=== PATIENT | female | born 1930 | race Caucasian/White ===

== ENCOUNTER 2019-08-15 13:41 | Inpatient (IN) ==
[2019-08-15 14:29] LABS: Basophils # (auto) 0.01 K/uL (0-0.2); Basophils % (auto) 0.2 %; Eosinophils # (auto) 0.03 K/uL (0-0.5); Eosinophils % (auto) 0.5 %; Hematocrit (blood only) 36.1 % (37-47); Immature Granulocytes # (auto) 0.01 K/uL (0.00-0.02); Immature Granulocytes % (auto) 0.2 %; Lymphocytes # (auto) 2.18 K/uL (1.2-3.4); Lymphocytes % (auto) 34.1 %; Mean Corpuscular Hemoglobin 33.8 pg (25-34); Mean Corpuscular Hgb Conc 33.2 g/dL (32-36); Mean Corpuscular Volume 101.7 fL (80-100); Mean Platelet Volume 8.9 fL (7.4-10.4); Monocytes # (auto) 0.34 K/uL (0.11-0.59); Monocytes % (auto) 5.3 %; Neutrophils # (auto) 3.82 K/uL (1.4-6.5); Neutrophils % (auto) 59.7 %; Platelet Count 192 K/uL (130-400); RDW Coefficient of Variation 14.5 % (11.5-14.5); RDW Standard Deviation 53.6 fL (36.4-46.3); Red Blood Count 3.55 M/uL (4.2-5.4); White Blood Count 6.39 K/uL (4.8-10.8)
[2019-08-15 14:46] LABS: Partial Thromboplastin Ratio 0.8; Partial Thromboplastin Time 21.7 Seconds (21.0-31.0); Prothrombin Time 10.7 Seconds (9.0-12.0)
[2019-08-15 14:47] LABS: Albumin Level 3.2 gm/dl (3.4-5.0); BUN Creatinine Ratio 17.9 (10-20); Calcium 9.3 mg/dl (8.5-10.1); Creatinine Clr Calc Pharmacy 20.5 ml/min; Est GFR (African American) 23.3; Est GFR (Non-African American) 20.1; Potassium 3.7 mmol/L (3.5-5.1)
[2019-08-15 15:03] LABS: Albumin Globulin Ratio 0.6 (0.9-2); Bilirubin,Total 0.5 mg/dl (0.2-1); Globulin 5.2 gm/dl (2.5-4.0); Total Protein 8.4 gm/dl (6.4-8.2); Troponin I 0.236 ng/ml (0-0.045)
--- NOTE | 2019-08-15 15:24 | XRay Report ---
XR chest 1V portable CLINICAL HISTORY: 88 years-old Female presenting with Dyspnea. TECHNIQUE: Portable upright AP view of the chest was obtained. COMPARISON: 10/12/2013. FINDINGS: Atherosclerosis of the aortic arch. Cardiac silhouette enlarged. Pulmonary vascular prominence. Inter stitial prominence. Bibasilar opacities and pleural effusions. Limited aeration of the lung bases. No pneumothorax. Osteopenia suspected. Upper abdomen normal. IMPRESSION: 1. Cardiomegaly with volume overload and congestive change. 2. Suspected bibasilar edema. Aspiration or extensive atelectasis may also appear similarly. 3. Bilateral pleural effusions. ACT 112: Negative or not required by law. Electronically signed by: Jalen Pacheco M.D. 08/15/2019 3:23 PM
[2019-08-15] MEDS ORDERED: FUROSEMIDE 40 MG/4 ML VIAL IV STA (15:29)
[2019-08-15] MEDS ORDERED: ASPIRIN CHEW 324 MG PO STA (15:29)
[2019-08-15] MEDS ORDERED: ASPIRIN 81 MG CHEW PO STA (15:36)
[2019-08-15 15:52] LABS: Appearance Urine Clear (Clear); Bacteria Urine Automated Negative (Negative); Bilirubin Urine Negative (Negative); Blood Urine Negative (Negative); Color Urine Yellow; Epithelial Cell Urine Auto >30 /lpf (0-5); Glucose Urine UA Negative (Negative); Ketones Urine Negative (Negative); Leukocyte Esterase Urine Trace (Negative); Nitrite Urine Negative (Negative); Protein Urine Negative (Negative); RBC Urine Automated 0-4 /hpf (0-4); Specific Gravity Urine 1.016 (1.000-1.030); Urobilinogen Urine Negative (Negative)
[2019-08-15 16:16] LABS: Thyroid Stimulating Hormone 3.73 uIu/ml (0.300-4.500)
--- NOTE | 2019-08-15 16:26 | History & Physical Report ---
Date of Service August 15, 2019 Assessment & Plan (1) Dyspnea on exertion: (2) CHF (congestive heart failure): (3) Elevated troponin: This is an 88-year-old female with significant past medical history of HTN, HLD, hypothyroidism, CKD stage IV with baseline creatinine 1.8-2.0, multiple myeloma in surveillance since 2012, osteoporosis who presents to [facility] ED secondary to dyspnea on exertion and weakness x4 days. In ED patient remained hemodynamically stable, saturating well on room air. CBC revealed WBC 6.39, H&H 12.0 and 36.1, platelet 192. CMP revealed sodium 134, K3.7, BUN 39, creatinine 2.16, glucose 131, troponin elevated 0.236, proBNP elevated 24,598 TSH 3.73 CXR: IMPRESSION:1. Cardiomegaly with volume overload and congestive change. B/L pleural effusions. She received ASA 325 mg x 1 along with furosemide 40 mg IV x1. Repeat ECG reveals normal sinus rhythm, no ischemic ST changes. Patient is chest pain-free Pt appears dry on exam, w/o edema, no significant weight gain ? if CHF/congestive change in setting of cardiac dysfunction vs cardiorenal Elevated troponin may be secondary to demand ischemia vs CKD. Patient does complain of productive purulent cough, but is afebrile without other respiratory complaint -procalcitonin pending, infectious etiology not ruled out Admit to PCU Administer Lasix 40 mg IV x1 now obtain echocardiogram - last done 2018 wnl Monitor response Strict I's and O's, daily weights Place Croft catheter, patient tends to be incontinent Cycle troponin every 6 hours x2 starting at 6 PM Cardiology consulted Low threshold for nephrology consult Sputum culture Incentive spirometry (4) CKD (chronic kidney disease), stage IV: Baseline creatinine 1.8-2.0 Creatinine 2.44 on 08/12/2019 BUN/creatinine 39 and 2.16 today Monitor renal function closely in setting of diuresis Low threshold to consult [facility] nephrology (5) Hypertension: On atenolol and Lasix as outpatient Hold oral Lasix BP 134/72 upon my evaluation Monitor (6) Hypothyroid: Continue levothyroxine (7) DVT prophylaxis: SQ Heparin SCD/TEDS Disposition: Admit to PCU Follow-up: PCP Dr. Bo upon discharge, along with appropriate cardiology and nephrology follow-up Patient was seen and examined in collaboration with Dr. Ngo, please see addendum History of Present Illness Chief Complaint: ALVAREZ and weakness x4 days. Primary Care Provider: Oswaldo Bo DO This is an 88-year-old female with significant past medical history of HTN, HLD, hypothyroidism, CKD stage IV with baseline creatinine 1.8-2.0, multiple myeloma in surveillance since 2012, osteoporosis who presents to [facility] ED secondary to dyspnea on exertion and weakness x4 days. Nephew and niece are at bedside. Patient elicits for the past 4 days she is overall felt unwell. Complains of shortness of breath with minimal exertion, productive purulent cough, decreased appetite and overall weakness. She lives alone but is monitored frequently by her nephew. She ambulates with a walker at baseline. She feels ambulating has been much more difficult over the past few days due to her weakness and being significantly short of breath. She denies any fever, chills, sweats, lightheadedness, dizziness, syncope, fall, chest pain, palpitations, hemoptysis, orthopnea, PND, nausea, vomiting, abdominal pain, dysuria, increased urgency or frequency with urination, melena, hematochezia. She is mostly constipated and last bowel movement was 2 days ago which is normal for her. Her appetite has been overall decreased and overall intake has been poor over the past few days. Niece at bedside felt maybe she was dehydrated. No other recent illness or sick contacts. She does not monitor her weights on a regular basis; however, he is feels she only fluctuates about 1 to 2 pounds and has otherwise been stable. No significant lower extremity edema and she does take Lasix 40 mg twice daily. She is been compliant with her medications. She denies any significant increase in salt intake. In ED patient remained hemodynamically stable, saturating well on room air. CBC revealed WBC 6.39, H&H 12.0 and 36.1, platelet 192. CMP revealed sodium 134, K3.7, BUN 39, creatinine 2.16, glucose 131, troponin elevated 0.236, proBNP elevated 24,598 TSH 3.73 CXR: IMPRESSION:1. Cardiomegaly with volume overload and congestive change. B/L pleural effusions. She received ASA 325 mg x 1 along with furosemide 40 mg IV x1. Allergies Allergy/AdvReac Type Severity Reaction Status Date / Time No Known Allergies Allergy Unverified 08/15/19 14:09 Home Medications Home Medications Medication Instructions Recorded Confirmed Type amitriptyline 50 mg PO HS 10/30/18 08/15/19 History aspirin 81 mg PO QAM 10/30/18 08/15/19 History atenolol 25 mg PO HS 10/30/18 08/15/19 History atorvastatin 10 mg PO HS 10/30/18 08/15/19 History furosemide 40 mg PO BIDM 10/30/18 08/15/19 History levothyroxine 75 mcg PO DAILYBB 08/15/19 08/15/19 History multivitamin 1 tab PO QAM 08/15/19 08/15/19 History Past Med/Surg History Medical History (Updated 08/15/19 @ 19:08 by Samm Taylor MD) CKD (chronic kidney disease), stage IV Hypertension (Chronic) Hypothyroid (Chronic) Multiple myeloma In surveillance since 2012, follows Dr. Aceves Osteoporosis Surgical History (Updated 08/15/19 @ 16:36 by Kimmy Browne PA-C) History of enucleation of left eyeball Family History (Updated 08/15/19 @ 16:36 by Kimmy Browne PA-C) Father Diabetes Social History Preferred Language: Malian Communication Ability: Effective Beliefs That Will Affect Care: None Current Living Situation: Alone current occupational status: retired Other Information That Helps Us Care for You: Yes ([employer]) Feels Safe at Home: Yes Safety Concerns: Feels Safe At This Time Smoking Status: Never smoker Hx Alcohol Use: No Hx Substance Use: No Review of Systems Review of Systems: All systems reviewed & are unremarkable except as noted in HPI & below Physical Exam Physical Exam: Constitutional: WD/WN, elderly, female vitals as above, NAD, sitting up in bed, pleasant, conversing easily Head: Normocephalic, Atraumatic Eyes: PERRL on right, left eye prosthetic, conjunctivae normal, anicteric scl erae ENMT: external ear and nose normal, oropharynx with dry mucous membranes Neck: trachea midline, no thyromegaly normal visual inspection Respiratory: normal respiratory effort, lungs clear to auscultation with decreased absent breath sounds bibasilar, no wheeze, rales, rhonchi. Normal insp/exp effort, no accessory muscle use Cardiovascular: RRR, no murmur, no edema Vessels: no JVD or carotid bruit Chest: normal inspection of chest Abdomen: normal bowel sounds, soft, nontender, no hepatosplenomegaly Musculoskeletal: no cyanosis or clubbing, extremities motor strength 5/5 Skin: no rashes, warm and dry normal turgor Neurologic: PERRL, EOMI, accommodation nl, no face palsy, no dysarthria CN's II-XI intact bilaterally and moves all extremities Psychiatric: A+Ox3, euthymic affect Lymphatic: no cervical or axillary lymphadenopathy : deferred Results & Data Vital Signs (Past 12 Hours) Vital Signs Temp Pulse Pulse Resp BP BP Pulse Ox 08/15/19 15:57 81 24 137/74 95 08/15/19 15:28 79 26 H 174/146 H 94 08/15/19 14:08 98 08/15/19 13:44 36.3 C L 77 20 141/83 H 98 Laboratory Results Short CBC 08/15/19 08/15/19 08/15/19 Range/Units 14:20 14:20 14:20 WBC 6.39 (4.8-10.8) K/uL Hgb 12.0 (12.0-16.0) g/dL Hct 36.1 L (37-47) % Plt Count 192 (130-400) K/uL Sodium 134 L (136-145) mmol/L Creatinine 2.16 H (0.6-1.2) mg/dl Troponin I 0.236 H* (0-0.045) ng/ml NT-Pro-B Natriuret Pep 11667 H (0-1800) pg/ml TSH 3.730 (0.300-4.500) uIu/ml BMP 08/15/19 14:20 Sodium 134 L Potassium 3.7 Chloride 102 Carbon Dioxide 28 BUN 39 H Creatinine 2.16 H Glucose 131 H Calcium 9.3 Cardiac Enzymes 08/15/19 Range/Units 14:20 Troponin I 0.236 H* (0-0.045) ng/ml Liver Function 08/15/19 Range/Units 14:20 Total Bilirubin 0.5 (0.2-1) mg/dl AST 29 (15-37) U/L ALT 25 (12-78) U/L Alkaline Phosphatase 64 (45-117) U/L Albumin 3.2 L (3.4-5.0) gm/dl Urine 08/15/19 Range/Units 15:20 Urine Color Yellow Urine Appearance Clear (Clear) Urine pH 5.0 (4.5-7.5) Ur Specific [place] 1.016 (1.000-1.030) Urine Protein Negative (Negative) Urine Glucose (UA) Negative (Negative) Diagnostic Findings CXR: IMPRESSION: 1. Cardiomegaly with volume overload and congestive change. 2. Suspected bibasilar edema. Aspiration or extensive atelectasis may also appear similarly. 3. Bilateral pleural effusions. Medications Administered Discontinued Medications Aspirin (Aspirin Chew) 243 mg PO NOW STA Stop: 08/15/19 15:37 Last Admin: 08/15/19 16:27 Dose: 243 mg Documented by: [id number] Code Status & VTE Plan Code Status Full code VTE Prophylaxis Plan VTE Prophylaxis will be ordered: Yes Supervising Physician Co-Signing Physician Notes Patient seen and examined by me, care coordinated with Kimmy Browne PA-C. Please refer to her note for further details and chronic conditions. Patient is 88-year-old female, with history of CKD stage IV, hypertension, hyperlipidemia, hypothyroidism, history of MM and surveillance since 2012. She presents with shortness of breath for the past 4 days, occasional cough with white sputum production. Chest x-ray concerning for congestion with bilateral pleural effusions. Troponin elevated at 0.236, and on repeat 4 hours later, 0.264. EKG showed normal sinus rhythm, left axis deviation, possible anterior infarct, age undetermined. patient denies any chest pain or palpitations, currently sitting up in bed speaking in full sentences, on room air. No history of fevers, chills or sick contacts. Says she does not go outside that much. Patient received 40 mg IV Lasix in the ED around 5 PM. Currently her lung sounds are somewhat diminished, with some bibasilar crackles. Heart regular, no murmurs noted. Abdomen soft, nontender nondistended, obese. No significant lower extremity edema noted. Creatinine mildly elevated from baseline, currently 2.16, baseline about 1.8-2.0. possible concern for CHF, echo ordered, repeat troponin ordered and night provider notified to follow-up. We will continue to monitor her resp onse to IV Lasix, will obtain standing scale this evening and in the morning, Croft catheter was placed and will monitor I's and O's closely. If no improvement in creatinine and fluid balance, will likely consult nephrology tomorrow. (1) CHF (congestive heart failure) Heart failure chronicity: unspecified Heart failure type: unspecified Qualified Code(s): I50.9 - Heart failure, unspecified
[2019-08-15] MEDS ORDERED: ONDANSETRON INJ 2 MG/ML 2 ML VIAL IV PRN (17:33)
[2019-08-15] MEDS ORDERED: POLYETHYLENE (MIRALAX) 17 GM PACK PO PRN (17:33)
[2019-08-15] MEDS ORDERED: ACETAMINOPHEN 325 MG TAB PO PRN (17:33)
--- NOTE | 2019-08-15 19:08 | Emergency Department Note ---
Entered by Kate Tejeda acting as a scribe for History of Present Illness General Chief complaint: Respiratory Problems Stated complaint: DRAINAGE, HARD TIME BREATHING Time Seen by Provider: 08/15/19 13:53 History of Present Illness Provider complaint: shortness of breath Onset (ago): day(s) 5 Pain Consistency: + other (episode) Quality: + other (shortness of breath) Associated symptoms: + denies other symptoms (leg swelling, history of blood clots or heart failure, sick contact, abdominal pain, falls), + cough (productive with colored phlegm), + loss of appetite (mild) and + other (saw PCP yesterday 3 days ago and got a chest x-ray that showed fluid in lungs, ); no fever/chills Treatments prior to arrival: none The patient is an 88 year old while female w/ PMHx of hypertension and hypothyroidism who presents to the ED w/ CC of an episode of shortness of breath beginning 5 days ago. The patient states that her shortness of breath is exacerbated by movement and lying flat. The patient states that she was seen by her PCP 3 days ago and got a chest x-ray that showed fluid present in her lungs. The patient notes that she also has a productive cough with colored phlegm as well as a mild loss of appetite. The patient denies leg swelling, history of blood clots or heart failure, sick contact, fever, chills, abdominal pain and falls. The patient notes that she has not taking any treatments prior to arrival to help the shortness of breath. Home Medications Home Medications Medication Instructions Recorded Confirmed Type amitriptyline 50 mg PO HS 10/30/18 08/15/19 History aspirin 81 mg PO QAM 10/30/18 08/15/19 History atenolol 25 mg PO HS 10/30/18 08/15/19 History atorvastatin 10 mg PO HS 10/30/18 08/15/19 History furosemide 40 mg PO BIDM 10/30/18 08/15/19 History levothyroxine 75 mcg PO DAILYBB 08/15/19 08/15/19 History multivitamin 1 tab PO QAM 08/15/19 08/15/19 History Allergies Allergy/AdvReac Type Severity Reaction Status Date / Time No Known Allergies Allergy Unverified 08/15/19 14:09 Past Med/Surg History Medical History (Updated 08/15/19 @ 19:08 by Samm Taylor MD) CKD (chronic kidney disease), stage IV Hypertension (Chronic) Hypothyroid (Chronic) Multiple myeloma In surveillance since 2012, follows Dr. Aceves Osteoporosis Surgical History (Updated 08/15/19 @ 16:36 by Kimmy Browne PA-C) History of enucleation of left eyeball Family History (Updated 08/15/19 @ 16:36 by Kimmy Browne PA-C) Father Diabetes Social History Preferred Language: Hebrew Communication Ability: Effective Beliefs That Will Affect Care: None Current Living Situation: Alone current occupational status: retired Other Information That Helps Us Care for You: Yes ([employer]) Feels Safe at Home: Yes Safety Concerns: Feels Safe At This Time Smoking Status: Never smoker Hx Alcohol Use: No Hx Substance Use: No Review of Systems See HPI for pertinent positives & negatives. and A total of 10 systems reviewed and were otherwise negative Physical Exam Vital Signs Vital Signs - 24 hr 08/15/19 13:44 08/15/19 14:08 08/15/19 15:28 Temperature 36.3 C L Temperature Source Oral Pulse Rate 77 Pulse Rate [Right Finger] 79 Pulse Rhythm Regular Pulse Strength Normal Respiratory Rate 20 26 H Respiratory Effort / Characteristics Non-Labored Spontaneous Respiratory Depth Normal Respiratory Pattern Regular Blood Pressure 141/83 H Blood Pressure [Right Arm] 174/146 H Blood Pressure Mean 102 Blood Pressure Mean [Right Arm] 155 Blood Pressure Position Sitting Blood Pressure Position [Right Arm] Pulse Oximetry 98 98 94 Oxygen Delivery Method Room Air Room Air Room Air Sepsis Recent Fever Within 48 Hours No Sepsis New/Unexplained Change in Mental Status No Sepsis Action Taken by Nursing No Action Required 08/15/19 15:57 Temperature Temperature Source Pulse Rate Pulse Rate [Right Finger] 81 Pulse Rhythm Pulse Strength Respiratory Rate 24 Respiratory Effort / Characteristics Respiratory Depth Respiratory Pattern Blood Pressure Blood Pressure [Right Arm] 137/74 Blood Pressure Mean Blood Pressure Mean [Right Arm] 95 Blood Pressure Position Blood Pressure Position [Right Arm] Sitting Pulse Oximetry 95 Oxygen Delivery Method Room Air Sepsis Recent Fever Within 48 Hours Sepsis New/Unexplained Change in Mental Status Sepsis Action Taken by Nursing GENERAL: Well appearing, well nourished, NAD, non-toxic, wearing glasses. EYE EXAM: Normal conjunctiva. PERRL, no anisocoria and EOM's grossly intact w/o pain. OROPHARYNX: Moist mucous membranes. Grossly normal dentition. NECK: Supple, no nuchal rigidity, no adenopathy, non-tender. No signs of meningismus. LUNGS: Crackles at bilateral bases. Normal chest wall mechanics. HEART: NSR, no MRG. ABDOMEN: Abdomen soft, non-tender, normo-active bowel sounds, no masses, no rebound or guarding. BACK: No CVA TTP. SKIN: No rashes and no bruising. UPPER EXTREMITIES: Upper extremities are grossly normal. LOWER EXTREMITIES: No pitting edema. No calf pain. Negative Eduard's sign. NEURO EXAM: A&O x3, cranial nerves II-XII grossly intact, normal speech, moves all 4 extremities on command w/o issue. Course Course 1355: Past medical records reviewed. The patient was evaluated in room C07. A complete history and physical exam was performed. 1519: I reevaluated the patient and she still appears to having respiratory distress. I will order the rest of the aspirin and consult for admission. 1536: I discussed the patient's case with Kimmy Rose PA-C. She will be accepting the patient's case with Dr. Corinne Rose, Hospitalist. They will evaluate the patient for further management. Consultations Consultation #1: I discussed the patient's case with Kimmy Rose PA-C. She will be accepting the patient's under Dr. Corinne Rose, [facility] italist. They will evaluate the patient for further management. Time: 15:36 Administered Medications Discontinued Medications Aspirin (Aspirin Chew) 243 mg PO NOW STA Stop: 08/15/19 15:37 Last Admin: 08/15/19 16:27 Dose: 243 mg Documented by: [id number] Furosemide (Lasix) 40 mg IV NOW STA Stop: 08/15/19 15:30 Last Admin: 08/15/19 16:41 Dose: 40 mg Documented by: [id number] Medical Decision Making Differential Diagnosis Differential diagnosis: Etiologies such as infections, reactive airway disease, COPD, pneumonia, pleural effusion, pulmonary edema, ARDS, pneumothorax, CHF, cardiac ischemia, cardiac tamponade, dysrhythmia, anemia, pulmonary embolism, musculoskeletal, gastroint estinal process, as well as others were entertained. Medical Records Attestation: I reviewed the patient's medical records. Home Medications Current Medication List: was personally reviewed by me Laboratory Data Attestation: I reviewed the patient's lab results. Result diagrams: 08/15/19 14:20 08/15/19 14:20 Lab Results 08/15/19 08/15/19 08/15/19 Range/Units 14:20 14:20 14:20 WBC 6.39 (4.8-10.8) K/uL RBC 3.55 L (4.2-5.4) M/uL Hgb 12.0 (12.0-16.0) g/dL Hct 36.1 L (37-47) % MCV 101.7 H (80-100) fL MCH 33.8 (25-34) pg MCHC 33.2 (32-36) g/dL RDW Std Deviation 53.6 H (36.4-46.3) fL RDW Coeff of [place] 14.5 (11.5-14.5) % Plt Count 192 (130-400) K/uL MPV 8.9 (7.4-10.4) fL Immature Gran % (Auto) 0.2 % Neut % (Auto) 59.7 % Lymph % (Auto) 34.1 % Randall % (Auto) 5.3 % Eos % (Auto) 0.5 % Baso % (Auto) 0.2 % Immature Gran # (Auto) 0.01 (0.00-0.02) K/uL Neut # (Auto) 3.82 (1.4-6.5) K/uL Lymph # (Auto) 2.18 (1.2-3.4) K/uL Randall # (Auto) 0.34 (0.11-0.59) K/uL Eos # (Auto) 0.03 (0-0.5) K/uL Baso # (Auto) 0.01 (0-0.2) K/uL PT 10.7 (9.0-12.0) Seconds INR 1.0 (0.9-1.1) APTT 21.7 (21.0-31.0) Seconds PTT Ratio 0.8 Sodium 134 L (136-145) mmol/L Potassium 3.7 (3.5-5.1) mmol/L Chloride 102 (98-107) mmol/L Carbon Dioxide 28 (21-32) mmol/L Anion Gap 4.0 (3-11) BUN 39 H (7-18) mg/dl Creatinine 2.16 H (0.6-1.2) mg/dl Est Cr Clr Drug Dosing 20.5 ml/min Est GFR ( Amer) 23.3 Est GFR (Non-Af Amer) 20.1 BUN/Creatinine Ratio 17.9 (10-20) Glucose 131 H (70-99) mg/dl Calcium 9.3 (8.5-10.1) mg/dl Total Bilirubin 0.5 (0.2-1) mg/dl AST 29 (15-37) U/L ALT 25 (12-78) U/L Alkaline Phosphatase 64 (45-117) U/L Troponin I 0.236 H* (0-0.045) ng/ml NT-Pro-B Natriuret Pep (0-1800) pg/ml Total Protein 8.4 H (6.4-8.2) gm/dl Albumin 3.2 L (3.4-5.0) gm/dl Globulin 5.2 H (2.5-4.0) gm/dl Albumin/Globulin Ratio 0.6 L (0.9-2) Procalcitonin (0-0.5) ng/ml TSH (0.300-4.500) uIu/ml Urine Color Urine Appearance (Clear) Urine pH (4.5-7.5) Ur Specific [place] (1.000-1.030) Urine Protein (Negative) Urine Glucose (UA) (Negative) Urine Ketones (Negative) Urine Blood (Negative) Urine Nitrite (Negative) Urine Bilirubin (Negative) Urine Urobilinogen (Negative) Ur Leukocyte Esterase (Negative) Urine WBC (Auto) (0-5) /hpf Urine RBC (Auto) (0-4) /hpf U Hyaline Cast (Auto) (0-5) /lpf U Epithel Cells (Auto) (0-5) /lpf Urine Bacteria (Auto) (Negative) 08/15/19 08/15/19 08/15/19 Range/Units 14:20 14:20 15:20 WBC (4.8-10.8) K/uL RBC (4.2-5.4) M/uL Hgb (12.0-16.0) g/dL Hct (37-47) % MCV (80-100) fL MCH (25-34) pg MCHC (32-36) g/dL RDW Std Deviation (36.4-46.3) fL RDW Coeff of Tim[place] (11.5-14.5) % Plt Count (130-400) K/uL MPV (7.4-10.4) fL Immature Gran % (Auto) % Neut % (Auto) % Lymph % (Auto) % Randall % (Auto) % Eos % (Auto) % Baso % (Auto) % Immature Gran # (Auto) (0.00-0.02) K/uL Neut # (Auto) (1.4-6.5) K/uL Lymph # (Auto) (1.2-3.4) K/uL Randall # (Auto) (0.11-0.59) K/uL Eos # (Auto) (0-0.5) K/uL Baso # (Auto) (0-0.2) K/uL PT (9.0-12.0) Seconds INR (0.9-1.1) APTT (21.0-31.0) Seconds PTT Ratio Sodium (136-145) mmol/L Potassium (3.5-5.1) mmol/L Chloride (98-107) mmol/L Carbon Dioxide (21-32) mmol/L Anion Gap (3-11) BUN (7-18) mg/dl Creatinine (0.6-1.2) mg/dl Est Cr Clr Drug Dosing ml/min Est GFR ( Amer) Est GFR (Non-Af Amer) BUN/Creatinine Ratio (10-20) Glucose (70-99) mg/dl Calcium (8.5-10.1) mg/dl Total Bilirubin (0.2-1) mg/dl AST (15-37) U/L ALT (12-78) U/L Alkaline Phosphatase (45-117) U/L Troponin I (0-0.045) ng/ml NT-Pro-B Natriuret Pep 00999 H (0-1800) pg/ml Total Protein (6.4-8.2) gm/dl Albumin (3.4-5.0) gm/dl Globulin (2.5-4.0) gm/dl Albumin/Globulin Ratio (0.9-2) Procalcitonin 0.09 (0-0.5) ng/ml TSH 3.730 (0.300-4.500) uIu/ml Urine Color Yellow Urine Appearance Clear (Clear) Urine pH 5.0 (4.5-7.5) Ur Specific [place] 1.016 (1.000-1.030) Urine Protein Negative (Negative) Urine Glucose (UA) Negative (Negative) Urine Ketones Negative (Negative) Urine Blood Negative (Negative) Urine Nitrite Negative (Negative) Urine Bilirubin Negative (Negative) Urine Urobilinogen Negative (Negative) Ur Leukocyte Esterase Trace H (Negative) Urine WBC (Auto) 1-5 (0-5) /hpf Urine RBC (Auto) 0-4 (0-4) /hpf U Hyaline Cast (Auto) 5-10 H (0-5) /lpf U Epithel Cells (Auto) >30 H (0-5) /lpf Urine Bacteria (Auto) Negative (Negative) Imaging Data Radiologist's Impression: Radiology results as stated below per my review and the radiologist's interpretation: XR chest 1V portable CLINICAL HISTORY: 88 years-old Female presenting with Dyspnea. TECHNIQUE: Portable upright AP view of the chest was obtained. COMPARISON: 10/12/2013. FINDINGS: Atherosclerosis of the aortic arch. Cardiac silhouette enlarged. Pulmonary vascular prominence. Interstitial prominence. Bibasilar opacities and pleural effusions. Limited aeration of the lung bases. No pneumothorax. Osteopenia suspected. Upper abdomen normal. IMPRESSION: 1. Cardiomegaly with volume overload and congestive change. 2. Suspected bibasilar edema. Aspiration or extensive atelectasis may also appear similarly. 3. Bilateral pleural effusions. ACT 112: Negative or not required by law. Electronically signed by: Jalen Pacheco M.D. 08/15/2019 3:23 PM ECG Data Attestation: I personally reviewed and interpreted this ECG as follows: Indication: + SOB/dyspnea Rate (beats per minute): 83 Rhythm: + normal sinus ECG [place]: + Left axis deviation ECG ST segments: + T-wave inversions (high lateral leads) ECG Findings: + Q waves (lead 3 ) Comparison ECG Date: from (10/15/2013) Change: the following changes noted (TWI and left axis deviation new) Blood Pressure Blood Pressure Findings: Elevated blood pressure Blood Pressure Disposition: further management by hospitalist RUDY Narrative Patient was seen and evaluated the bedside. The patient does present with chest congestion as well as some shortness of breath. The patient does have some orthopnea as well as dyspnea on exertion. Patient does have some bibasilar crackles and decreased breath sounds at the right base. The patient is clinically not look exquisitely volume overloaded as the patient's lower extremities are not edematous. The patient did a blood work complete along with an EKG troponin chest x-ray. Chest x-ray does show some congestive changes. Troponin is detectable. I believe that given the patient's congestive change and associated productive sputum this may be more infectious or demand ischemia. The patient does have some lateral T wave inversions which are new; however, the patient had rest not complained of any chest pains or shortness of breath. Given the congestive change and associated productive cough believe this is more of a volume overload and demand ischemia. No heparin at this time. I did speak the on-call hospitalist agreed to further evaluate treat the patient. Patient was ordered the rest of a full dose aspirin and subsequently admitted to the medicine service. Impression & Plan CHF (congestive heart failure), Elevated troponin, TEMITOPE (acute kidney injury) Discharge Plan Visit Data *Final* Discharge Date/Time: 08/15/19 16:56 Chief Complaint: Respiratory Problems Stated Complaint: DRAINAGE, HARD TIME BREATHING ED Provider: Samm Taylor Discharge Problem: CHF (congestive heart failure), Elevated troponin, TEMITOPE (acute kidney injury) Patient Disposition: Admitted As Inpatient Discharge Instructions Interventions: ED Discharge Assessment Last Done: 08/15/19 16:56 Discharge Problem: CHF (congestive heart failure) Qualifiers: Heart failure type: unspecified Heart failure chronicity: unspecified Qualified Code(s): I50.9 - Heart failure, unspecified The scribe's documentation has been prepared under my direction and personally reviewed by me in its entirety. I confirm that the note above accurately reflects all work, treatment, procedures, and medical decision making performed by me.
[2019-08-15] MEDS: AMITRIPTYLINE HCL 50 MG TAB PO SCH (20:53)
[2019-08-15] MEDS: ATORVASTATIN 10 MG TAB PO SCH (20:53)
[2019-08-15] MEDS ORDERED: ATENOLOL 25 MG TABLET PO SCH (21:00)
[2019-08-15] MEDS: HEPARIN SOD 5,000 UNIT/0.5 ML VIAL SQ SCH (21:41)
[2019-08-16] MEDS: HEPARIN SOD 5,000 UNIT/0.5 ML VIAL SQ SCH ×3 (05:47→21:10)
[2019-08-16] MEDS: LEVOTHYROXINE SODIUM 75 MCG TABLET PO SCH (05:47)
[2019-08-16 06:13] LABS: Hematocrit (blood only) 33.4 % (37-47); Hemoglobin 11.4 g/dL (12.0-16.0); Mean Corpuscular Hemoglobin 35.1 pg (25-34); Mean Corpuscular Hgb Conc 34.1 g/dL (32-36); Mean Corpuscular Volume 102.8 fL (80-100); Mean Platelet Volume 8.9 fL (7.4-10.4); Platelet Count 180 K/uL (130-400); RDW Coefficient of Variation 14.6 % (11.5-14.5); RDW Standard Deviation 53.9 fL (36.4-46.3); Red Blood Count 3.25 M/uL (4.2-5.4); White Blood Count 6.94 K/uL (4.8-10.8)
[2019-08-16 06:37] LABS: ALC (manual) 3.23 K/uL (1.2-3.4); ANC (manual) 3.04 K/uL (1.4-6.5); Anisocytosis Present; Basophils # (manual) 0.06 K/uL (0-0.2); Basophils % (manual) 0.9 %; Eosinophils # (manual) 0.12 K/uL (0-0.5); Eosinophils % (manual) 1.8 %; Lymphocytes # (manual) 0.49 K/uL (1.2-3.4); Metamyelocytes # (manual) 0.06 K/uL (0-0); Metamyelocytes % (manual) 0.9 %; Monocytes # (manual) 0.42 K/uL (0.11-0.59); Monocytes % (manual) 6.1 %; Neutrophils # (manual) 3.04 K/uL (1.4-6.5); Neutrophils % (manual) 43.8 %; Polychromasia 1+; Reactive Lymphocytes # (manual) 2.74 K/uL; Reactive Lymphocytes % (manual) 39.5 %
[2019-08-16 06:51] LABS: BUN Creatinine Ratio 17.5 (10-20); Calcium 8.8 mg/dl (8.5-10.1); Creatinine Clr Calc Pharmacy 20.4 ml/min; Est GFR (African American) 24.1; Est GFR (Non-African American) 20.8; Magnesium 2.5 mg/dl (1.8-2.4); Potassium 3.5 mmol/L (3.5-5.1)
[2019-08-16] MEDS: ASPIRIN 81 MG ECTAB PO SCH (07:48)
[2019-08-16] MEDS: MULTIVITAMIN TAB PO SCH (07:48)
[2019-08-16] MEDS ORDERED: FUROSEMIDE 40 MG in SYRINGE 0 ML IV ONE (08:00)
[2019-08-16] MEDS: POTASSIUM CHLORIDE 20 MEQ/15 ML UDC PO SCH ×2 (11:17→21:53)
--- NOTE | 2019-08-16 11:46 | Hospitalist Progress Note ---
Date of Service August 16, 2019 Assessment & Plan (1) Acute systolic CHF (congestive heart failure): Echo revealed poor EF with large area of immobility suggestive of fixed cardiac disease. Medical therapy at this time per cardiology. BP and HR are lower so holding on a BB at this time, however, ultimately would plan to change atenolol to Lopressor. Cont diuresis and will increase to Lasix 60 IV BID. (2) Demand ischemia: 2/2 systolic dysfunction and heart failure (3) CKD (chronic kidney disease), stage IV: followed by [facility]. Creat is around baseline. Cont monitoring while on diuresis. (4) Hypertension: Atenolol switched to Toprol XL. Lasix as above. (5) Hypothyroid: Levothyroxine per home regimen (6) Multiple myeloma: in remission per outpatient record. (7) DVT prophylaxis: SQ Heparin SCD/TEDS Full Code as discussed with the patient and her nephew today. Patience Serna, DO [facility] Hospitalist Subjective feeling improved WRT breathing today reports SOB x 3 days and some nonproductive coughing x 3 days denies fevers or chills denies weight gain ?dietary indiscretion, but not sure the patient understood the question. At my visit, her nephew and niece were present who are the main folks involved in her care. We discussed the echo findings and the plan We discussed the code status and she is a confirmed full code for now. Review of Systems Review of Systems: All systems reviewed & are unremarkable except as noted in HPI & below Physical Exam Physical Exam: CONSTITUTIONAL: obese, vitals as above, generally well- appearing EYES: normal conjunctivae, no scleral icterus ENT: MMM NECK: trachea midline, no lymphadenopathy RESPIRATORY: very diminished breath sounds with crackles throughout, no rales or wheezes, normal respiratory effort CARDIOVASCULAR: regular rate and rhythm, S1 and 2 heard without murmurs, gallops or rubs, no JVD, no peripheral edema GASTROINTESTINAL: normal bowel sounds, soft, nontender, nondistended MUSCULOSKELETAL: strength 5/5 throughout, head is normocephalic and atraumatic SKIN: warm and dry NEUROLOGIC: CN 2-12 grossly intact, no sensory deficit, normal cognition, normal speech, no tremor, no gross focal deficits. PSYCHIATRIC: alert cooperative and oriented to person, place and time. Questionable comprehension of her assessment and the plan, however. Results & Data Vital Signs (Past 12 Hours) Vital Signs Temp Pulse Resp BP Pulse Ox 08/16/19 11:29 36.8 C 60 18 129/67 96 08/16/19 07:45 36.5 C 59 L 18 139/72 96 08/16/19 04:24 36.7 C 59 L 16 148/77 H 95 Laboratory Results Short CBC 08/15/19 08/16/19 Range/Units 14:20 06:01 WBC 6.39 6.94 (4.8-10.8) K/uL Hgb 12.0 11.4 L (12.0-16.0) g/dL Hct 36.1 L 33.4 L (37-47) % Plt Count 192 180 (130-400) K/uL BMP 08/15/19 08/16/19 14:20 06:01 Sodium 134 L 139 Potassium 3.7 3.5 Chloride 102 104 Carbon Dioxide 28 30 BUN 39 H 37 H Creatinine 2.16 H 2.10 H Glucose 131 H 97 Calcium 9.3 8.8 Cardiac Enzymes 08/15/19 08/15/19 08/16/19 Range/Units 14:20 18:14 00:13 Troponin I 0.236 H* 0.264 H* 0.323 H* (0-0.045) ng/ml Liver Function 08/15/19 Range/Units 14:20 Total Bilirubin 0.5 (0.2-1) mg/dl AST 29 (15-37) U/L ALT 25 (12-78) U/L Alkaline Phosphatase 64 (45-117) U/L Albumin 3.2 L (3.4-5.0) gm/dl Urine 08/15/19 Range/Units 15:20 Urine Color Yellow Urine Appearance Clear (Clear) Urine pH 5.0 (4.5-7.5) Ur Specific [place] 1.016 (1.000-1.030) Urine Protein Negative (Negative) Urine Glucose (UA) Negative (Negative) Medications Administered Current Inpatient Medications Acetaminophen (Tylenol) 650 mg PO Q4H PRN PRN Reason: Pain or Fever Stop: 09/14/19 17:32 Amitriptyline HCl (Elavil) 50 mg PO HS PASTORA Stop: 09/14/19 20:59 Last Admin: 08/15/19 20:53 Dose: 50 mg Documented by: Aspirin (Ecotrin Ectab) 81 mg PO QAM [facility] Stop: 09/15/19 08:59 Last Admin: 08/16/19 07:48 Dose: 81 mg Documented by: Atorvastatin Calcium (Lipitor) 10 mg PO HS [facility] Stop: 09/14/19 20:59 Last Admin: 08/15/19 20:53 Dose: 10 mg Documented by: Heparin Sodium (Porcine) (Heparin Sodium (Porcine)) 5,000 units SQ Q8 [facility] Stop: 09/14/19 21:59 Last Admin: 08/16/19 05:47 Dose: 5,000 units Documented by: Levothyroxine Sodium (Synthroid) 75 mcg PO DAILYBB [facility] Stop: 09/15/19 06:29 Last Admin: 08/16/19 05:47 Dose: 75 mcg Documented by: Multivitamins (Multivitamin Tab) 1 tab PO [facility] Stop: 09/15/19 08:59 Last Admin: 08/16/19 07:48 Dose: 1 tab Documented by: Ondansetron HCl (Zofran) 4 mg IV Q6H PRN PRN Reason: Nausea Stop: 09/14/19 17:32 Polyethylene Glycol (Miralax Powder Packet) 17 gm PO DAILY PRN PRN Reason: Constipation Stop: 09/14/19 17:32 Potassium Chloride (Veronica Ciel Elix) 40 meq PO BID [facility] Stop: 09/15/19 10:59 Last Admin: 08/16/19 11:17 Dose: 40 meq Documented by:
--- NOTE | 2019-08-16 13:22 | Ultrasound Report ---
US effusion-chest/mediastinum CLINICAL HISTORY: b/l pleural effusions COMPARISON STUDY: Chest radiograph August 15, 2012. TECHNIQUE: Sonography of the bilateral hemithoraces was performed to evaluate pleural effusions. FINDINGS: Sonography of the left chest demonstrated a moderate left pleural effusion with estimated v olume of 639 cc. A suitable left rib interspace was marked for possible subsequent thoracentesis. Sonography of the right chest demonstrated a moderate right pleural effusion with estimated volume of 757 cc. Suitable right rib interspace was marked for possible subsequent thoracentesis. IMPRESSION: Moderate bilateral pleural effusions. Moderate bilateral chest wall mcdaniel placed. ACT 112: Negative or not required by law. Electronically signed by: Landon Grijalva M.D. 08/16/2019 1:20 PM
--- NOTE | 2019-08-16 14:59 | Cardiology Consultation ---
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 Given the fact there is significant wall thinning on echocardiogram it does appear to be old and given her severe chronic kidney disease and lack of overt symptoms at this time I do not see any benefit for cardiac catheterization. I believe the most prudent course of action at this point is to maximize her medical therapy, unfortunately, given her relative bradycardia and severe renal impairment will be significantly limited in her medication options. At this time I will change her atenolol to low-dose metoprolol succinate. Her diuretics should be increased to Lasix 60 mg IV twice daily and close I's and O should be followed. I am unable to add LEX ARB or aldosterone antagonist at this time. (2) CKD (chronic kidney disease), stage IV: (3) Multiple myeloma: (4) Coronary artery disease: Given the echocardiogram findings it does suggest significant coronary artery disease without active ischemia. Agree with continue her aspirin and atorvastatin. History of Present Illness Reason for Consultation: Acute decompensated heart failure Requesting Physician: Dr. Serna Attending Physician: Patience Serna, DO History of Present Illness It was my pleasure to see Mrs. Sierra in consultation today August 16, 2019. She is a very pleasant 88-year-old woman who has not been evaluated by our cardiology practice in the past. She presented to [facility] emergency department on 08/15/2019 with complaints of not feeling well for 4 days. She states that she has been experiencing some dyspnea and weakness along with decreased appetite. She lives by herself but is visited frequently by her nephew. She denies any chest pain, palpitations, lightheadedness, dizziness or syncope. Upon arrival to the emergency department she was found to be significantly volume overloaded with bilateral pleural effusions and she was given IV diuretics. She is diuresed approximately 1100 mL's and states that her breathing has improved but she has not ambulated yet. Cardiology was consulted and echocardiogram was performed which showed a new large LAD distribution infarct as compared to her echocardiogram from 2018 her LV systolic function went from normal to severely reduced. Currently states that she is feeling well at rest. Allergies Allergy/AdvReac Type Severity Reaction Status Date / Time No Known Allergies Allergy Unverified 08/15/19 14:09 Home Medications Home Medications Medication Instructions Recorded Confirmed Type amitriptyline 50 mg PO HS 10/30/18 08/15/19 History aspirin 81 mg PO QAM 10/30/18 08/15/19 History atenolol 25 mg PO HS 10/30/18 08/15/19 History atorvastatin 10 mg PO HS 10/30/18 08/15/19 History furosemide 40 mg PO BIDM 10/30/18 08/15/19 History levothyroxine 75 mcg PO DAILYBB 08/15/19 08/15/19 History multivitamin 1 tab PO QAM 08/15/19 08/15/19 History Patient History Medical History CKD (chronic kidney disease), stage IV Hypertension (Chronic) Hypothyroid (Chronic) Multiple myeloma In surveillance since 2012, follows Dr. Aceves Osteoporosis Surgical History History of enucleation of left eyeball Family History Father Diabetes Social History Preferred Language: Icelandic Communication Ability: Effective Beliefs That Will Affect Care: None Current Living Situation: Alone current occupational status: retired Other Information That Helps Us Care for You: Yes ([employer]) Feels Safe at Home: Yes Safety Concerns: Feels Safe At This Time Smoking Status: Never smoker Hx Alcohol Use: No Hx Substance Use: No Review of Systems Review of Systems: All systems reviewed & are unremarkable except as noted in HPI & below Physical Exam Physical Exam: General: Awake, alert and oriented x 3. No acute distress. HEENT: Normocephalic, atraumatic. Pupils equal, round and reactive to light and accommodation. Extraocular muscles are intact. Anicteric sclera. Moist mucous membranes. Neck: No JVD. No bruit. Cardiovascular: Regular. Positive S-4. Normal S-1 and S-2. No S-3. 3/6 holosystolic ejection murmur, left sternal border, mid-clavicular line with radiation to the axilla. No rubs. Pulmonary: Poor air movement in the bilateral bases with no overt findings of rales rhonchi or wheezing. Abdomen: Bowel sounds x 4, soft. No rebound, guarding or tenderness. No organomegaly. Extremities: No clubbing, cyanosis or edema. +2 pedal pulses bilaterally. Skin: Warm and dry. Results & Data Vital Signs (Past 12 Hours) Vital Signs Temp Pulse Resp BP Pulse Ox 08/16/19 11:29 36.8 C 60 18 129/67 96 08/16/19 07:45 36.5 C 59 L 18 139/72 96 08/16/19 04:24 36.7 C 59 L 16 148/77 H 95 Laboratory Results Laboratory Results - last 24 hr 08/15/19 08/15/19 08/15/19 14:20 14:20 14:20 WBC RBC Hgb Hct MCV MCH MCHC RDW Std Deviation RDW Coeff of Tim[place] Plt Count MPV Neutrophils % (Manual) Lymphocytes % (Manual) Reactive Lymphs % (Man) Monocytes % (Manual) Eosinophils % (Manual) Basophils % (Manual) Metamyelocytes % (Man) Neutrophils # (Manual) Total Absolute Neuts Lymphocytes # (Manual) Reactive Lymphs # Total Abs Lymphocytes Monocytes # (Manual) Eosinophils # (Manual) Basophils # (Manual) Metamyelocytes # (Man) Polychromasia Anisocytosis Sodium Potassium Chloride Carbon Dioxide Anion Gap BUN Creatinine Est Cr Clr Drug Dosing Est GFR ( Amer) Est GFR (Non-Af Amer) BUN/Creatinine Ratio Glucose Estimat Average Glucose Hemoglobin A1c Calcium Magnesium Total Bilirubin 0.5 Alkaline Phosphatase 64 Troponin I 0.236 H* NT-Pro-B Natriuret Pep 35251 H Total Protein 8.4 H Globulin 5.2 H Albumin/Globulin Ratio 0.6 L Triglycerides Cholesterol LDL Cholesterol, Calc VLDL Cholesterol, Calc HDL Cholesterol Cholesterol/HDL Ratio Procalcitonin 0.09 TSH 3.730 Urine Color Urine Appearance Urine pH Ur Specific [place] Urine Protein Urine Glucose (UA) Urine Ketones Urine Blood Urine Nitrite Urine Bilirubin Urine Urobilinogen Ur Leukocyte Esterase Urine WBC (Auto) Urine RBC (Auto) U Hyaline Cast (Auto) U Epithel Cells (Auto) Urine Bacteria (Auto) 08/15/19 08/15/19 08/16/19 15:20 18:14 00:13 WBC RBC Hgb Hct MCV MCH MCHC RDW Std Deviation RDW Coeff of [place] Plt Count MPV Neutrophils % (Manual) Lymphocytes % (Manual) Reactive Lymphs % (Man) Monocytes % (Manual) Eosinophils % (Manual) Basophils % (Manual) Metamyelocytes % (Man) Neutrophils # (Manual) Total Absolute Neuts Lymphocytes # (Manual) Reactive Lymphs # Total Abs Lymphocytes Monocytes # (Manual) Eosinophils # (Manual) Basophils # (Manual) Metamyelocytes # (Man) Polychromasia Anisocytosis Sodium Potassium Chloride Carbon Dioxide Anion Gap BUN Creatinine Est Cr Clr Drug Dosing Est GFR ( Amer) Est GFR (Non-Af Amer) BUN/Creatinine Ratio Glucose Estimat Average Glucose Hemoglobin A1c Calcium Magnesium Total Bilirubin Alkaline Phosphatase Troponin I 0.264 H* 0.323 H* NT-Pro-B Natriuret Pep Total Protein Globulin Albumin/Globulin Ratio Triglycerides Cholesterol LDL Cholesterol, Calc VLDL Cholesterol, Calc HDL Cholesterol Cholesterol/HDL Ratio Procalcitonin TSH Urine Color Yellow Urine Appearance Clear Urine pH 5.0 Ur Specific [place] 1.016 Urine Protein Negative Urine Glucose (UA) Negative Urine Ketones Negative Urine Blood Negative Urine Nitrite Negative Urine Bilirubin Negative Urine Urobilinogen Negative Ur Leukocyte Esterase Trace H Urine WBC (Auto) 1-5 Urine RBC (Auto) 0-4 U Hyaline Cast (Auto) 5-10 H U Epithel Cells (Auto) >30 H Urine Bacteria (Auto) Negative 08/16/19 08/16/19 08/16/19 06:01 06:01 06:01 WBC 6.94 RBC 3.25 L Hgb 11.4 L Hct 33.4 L MCV 102.8 H MCH 35.1 H MCHC 34.1 RDW Std Deviation 53.9 H RDW Coeff of [place] 14.6 H Plt Count 180 MPV 8.9 Neutrophils % (Manual) 43.8 Lymphocytes % (Manual) 7.0 Reactive Lymphs % (Man) 39.5 Monocytes % (Manual) 6.1 Eosinophils % (Manual) 1.8 Basophils % (Manual) 0.9 Metamyelocytes % (Man) 0.9 Neutrophils # (Manual) 3.04 Total Absolute Neuts 3.04 Lymphocytes # (Manual) 0.49 L Reactive Lymphs # 2.74 Total Abs Lymphocytes 3.23 Monocytes # (Manual) 0.42 Eosinophils # (Manual) 0.12 Basophils # (Manual) 0.06 Metamyelocytes # (Man) 0.06 H Polychromasia 1+ Anisocytosis Present Sodium 139 Potassium 3.5 Chloride 104 Carbon Dioxide 30 Anion Gap 5.0 BUN 37 H Creatinine 2.10 H Est Cr Clr Drug Dosing 20.4 Est GFR ( Amer) 24.1 Est GFR (Non-Af Amer) 20.8 BUN/Creatinine Ratio 17.5 Glucose 97 Estimat Average Glucose Pending Hemoglobin A1c Pending Calcium 8.8 Magnesium 2.5 H Total Bilirubin Alkaline Phosphatase Troponin I NT-Pro-B Natriuret Pep Total Protein Globulin Albumin/Globulin Ratio Triglycerides 117 Cholesterol 166 LDL Cholesterol, Calc 92 VLDL Cholesterol, Calc 23 HDL Cholesterol 51 Cholesterol/HDL Ratio 3 Procalcitonin TSH Urine Color Urine Appearance Urine pH Ur Specific [place] Urine Protein Urine Glucose (UA) Urine Ketones Urine Blood Urine Nitrite Urine Bilirubin Urine Urobilinogen Ur Leukocyte Esterase Urine WBC (Auto) Urine RBC (Auto) U Hyaline Cast (Auto) U Epithel Cells (Auto) Urine Bacteria (Auto) Medications Administered Current Inpatient Medications Acetaminophen (Tylenol) 650 mg PO Q4H PRN PRN Reason: Pain or Fever Stop: 09/14/19 17:32 Amitriptyline HCl (Elavil) 50 mg PO [facility] Stop: 09/14/19 20:59 Last Admin: 08/15/19 20:53 Dose: 50 mg Documented by: Aspirin (Ecotrin Ectab) [facility] Stop: 09/15/19 08:59 Last Admin: 08/16/19 07:48 Dose: 81 mg Documented by: Atorvastatin Calcium (Lipitor) 10 mg PO [facility] Stop: 09/14/19 20:59 Last Admin: 08/15/19 20:53 Dose: 10 mg Documented by: Heparin Sodium (Porcine) (Heparin Sodium (Porcine)) 5,000 units SQ Q8 [facility] Stop: 09/14/19 21:59 Last Admin: 08/16/19 13:51 Dose: 5,000 units Documented by: Furosemide 60 mg/ Syringe 6 mls @ 4 mls/min IV BID17 [facility] Stop: 09/15/19 16:59 Levothyroxine Sodium (Synthroid) 75 mcg PO DAILYBB [facility] Stop: 09/15/19 06:29 Last Admin: 08/16/19 05:47 Dose: 75 mcg Documented by: Multivitamins (Multivitamin Tab) 1 tab PO QAM [facility] Stop: 09/15/19 08:59 Last Admin: 08/16/19 07:48 Dose: 1 tab Documented by: Ondansetron HCl (Zofran) 4 mg IV Q6H PRN PRN Reason: Nausea Stop: 09/14/19 17:32 Polyethylene Glycol (Miralax Powder Packet) 17 gm PO DAILY PRN PRN Reason: Constipation Stop: 09/14/19 17:32 Potassium Chloride (Veronica Ciel Elix) 40 meq PO BID [facility] Stop: 09/15/19 10:59 Last Admin: 08/16/19 11:17 Dose: 40 meq Documented by:
[2019-08-16] MEDS: FUROSEMIDE 60 MG in SYRINGE 0 ML IV SCH (17:19)
[2019-08-16] MEDS: AMITRIPTYLINE HCL 50 MG TAB PO SCH (21:09)
[2019-08-16] MEDS: ATORVASTATIN 10 MG TAB PO SCH (21:10)
[2019-08-16] MEDS ORDERED: POTASSIUM CHLORIDE 20 MEQ TABCR PO SCH (21:15)
[2019-08-16] MEDS: METOPROLOL SUCC 25MG EXT REL TAB PO SCH (22:05)
[2019-08-16] MEDS: POTASSIUM CHLORIDE 10 MEQ TABCR PO SCH (22:05)
[2019-08-17] MEDS: LEVOTHYROXINE SODIUM 75 MCG TABLET PO SCH (06:22)
[2019-08-17] MEDS: HEPARIN SOD 5,000 UNIT/0.5 ML VIAL SQ SCH ×3 (06:22→21:12)
--- NOTE | 2019-08-17 07:04 | XRay Report ---
XR chest 1V portable HISTORY: 88 years-old Female CHF acute shortness of breath with congestive heart failure COMPARISON: Chest radiograph 08/15/2019 TECHNIQUE: Portable AP view of the chest FINDINGS: Cardiac silhouette is enlarged, unchanged. Calcified plaque of the thoracic aortic arch. No pneumotho rax. Pulmonary vascular congestion with interstitial coarsening persists. Unchanged bilateral pleural effusions with persistent bibasilar opacities. Degenerative changes of the shoulders and spine. IMPRESSION: 1. Cardiomegaly with unchanged pulmonary edema. 2. Stable pleural effusions with persistent bibasilar opacities. ACT 112: Negative or not required by law. The above report was generated using voice recognition software. It may contain grammatical, syntax o r spelling errors. Electronically signed by: Jad Anderson M.D. 08/17/2019 7:02 AM
[2019-08-17 07:20] LABS: Estimated Average Glucose 117 mg/dl; Hemoglobin A1C 5.7 % (4.5-5.6)
[2019-08-17] MEDS ORDERED: ACETAMINOPHEN 325 MG TAB PO PRN (07:27)
[2019-08-17 07:39] LABS: Hematocrit (blood only) 36.3 % (37-47); Hemoglobin 11.7 g/dL (12.0-16.0); Mean Corpuscular Hemoglobin 33.7 pg (25-34); Mean Corpuscular Hgb Conc 32.2 g/dL (32-36); Mean Corpuscular Volume 104.6 fL (80-100); Mean Platelet Volume 8.8 fL (7.4-10.4); Platelet Count 206 K/uL (130-400); RDW Coefficient of Variation 14.7 % (11.5-14.5); RDW Standard Deviation 56.5 fL (36.4-46.3); Red Blood Count 3.47 M/uL (4.2-5.4)
[2019-08-17 08:04] LABS: BUN Creatinine Ratio 17.4 (10-20); Calcium 9.3 mg/dl (8.5-10.1); Creatinine Clr Calc Pharmacy 22.2 ml/min; Est GFR (African American) 25.4; Est GFR (Non-African American) 21.9; Potassium 4.2 mmol/L (3.5-5.1)
[2019-08-17] MEDS: MULTIVITAMIN TAB PO SCH (08:46)
[2019-08-17] MEDS: POTASSIUM CHLORIDE 10 MEQ TABCR PO SCH ×2 (08:46→21:13)
[2019-08-17] MEDS: FUROSEMIDE 60 MG in SYRINGE 0 ML IV SCH ×2 (08:46→17:39)
[2019-08-17] MEDS: ASPIRIN 81 MG ECTAB PO SCH (08:47)
--- NOTE | 2019-08-17 10:37 | Cardiology Progress Note ---
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 Given the fact there is significant wall thinning on echocardiogram it does appear to be old and given her severe chronic kidney disease and lack of overt symptoms at this time I do not see any benefit for cardiac catheterization. I believe the most prudent course of action at this point is to maximize her medical therapy, unfortunately, given her relative bradycardia and severe renal impairment will be significantly limited in her medication options. The above was discussed with the patient and her nephew and they state that they understand and agree with the above plan. At this point we will continue with IV diuresis with Lasix 60 mg IV twice daily Metoprolol succinate has been initiated and she has tolerated well so far. I am unable to add LEX ARB or aldosterone antagonist at this time. (2) CKD (chronic kidney disease), stage IV: (3) Multiple myeloma: (4) Coronary artery disease: Given the echocardiogram findings it does suggest significant coronary artery disease without active ischemia. Agree with continue her aspirin and atorvastatin. Subjective Patient seen and examined with hilary and Dio of care team at bedside. States that she is feeling well and the breathing has improved since admission. Breathing is not yet back to baseline but denies any other complaints of chest pain, palpitations, lightheadedness, dizziness or syncope. Telemetry reviewed reveals normal sinus rhythm with a sustained episode of junctional tachycardia Review of Systems Review of Systems: All systems reviewed & are unremarkable except as noted in HPI & below Physical Exam Physical Exam: General: Awake, alert and oriented x 3. No acute distress. HEENT: Normocephalic, atraumatic. Pupils equal, round and reactive to light and accommodation. Extraocular muscles are intact. Anicteric sclera. Moist mucous membranes. Neck: No JVD. No bruit. Cardiovascular: Regular. Positive S-4. Normal S-1 and S-2. No S-3. No murmurs or rubs. Pulmonary: Clear to auscultation B/L. No rales, rhonchi or wheezing Abdomen: Bowel sounds x 4, soft. No rebound, guarding or tenderness. No organomegaly. Extremities: No clubbing, cyanosis or edema. +2 pedal pulses bilaterally. Skin: Warm and dry. Results & Data Vital Signs (Past 12 Hours) Vital Signs Temp Pulse Pulse Resp BP Pulse Ox 08/17/19 07:20 70 08/17/19 07:04 36.8 C 83 16 159/94 H 93 08/17/19 04:48 36.8 C 78 20 139/79 96 08/16/19 23:29 36.4 C L 80 22 132/73 91
[2019-08-17] MEDS ORDERED: LAVAGE SOLUTION 4000ML PO STA (13:47)
--- NOTE | 2019-08-17 13:48 | Hospitalist Progress Note ---
Date of Service August 17, 2019 Assessment & Plan (1) Acute systolic CHF (congestive heart failure): Coronary artery disease -main presenting symptoms of shortness of breath on exertion -echocardiogram on this admission compared to that of January 2018 changed from normal to severely reduced ejection fraction of 20 to 25% and newly detected wall motion abnormalities with hypokinetic/akinetic anterior, anterior lateral, anterior septal, and apical wall and associated wall thinning in these areas -as per cardiology evaluation echocardiogram findings suggest significant coronary artery disease without active ischemia; "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 Given the fact there is significant wall thinning on echocardiogram it does appear to be old" -cardiac catheterization is not recommended at this time given these cardiac changes appear old and because of poor renal function at baseline -currently medical management -continue aspirin and atorvastatin -is on metoprolol succinate 12.5 mg qhs -medical management with diuretic: currently on Lasix 60 IV BID. -CXR 08/17/19: Cardiomegaly with unchanged pulmonary edema. Stable pleural effusions with persistent bibasilar opacities -on room air, encourage ambulation (2) Demand ischemia: elevated troponins (on this admission) secondary to demand ischemia and chronic kidney disease stage IV -patient denied recent chest pains -admission troponins were 0.236, 0.264, 0.323 -medical management as above -no current active chest pains (3) CKD (chronic kidney disease), stage IV: monitor renal function while on Lasix diuretic (4) Hypertension: -blood pressure controlled with Toprol XL and Lasix (5) Hypothyroid: -Levothyroxine 75 mcg daily (6) Multiple myeloma: -in remission per outpatient record. (7) DVT prophylaxis: -SQ Heparin as per palliative care evaluation the code status is DNR/DNI nephew [phone] Subjective Patient seen and examined at bedside. breathing on room air. denies chest pain. no palpitations. no dizziness. no headache. no nausea. no vomiting. no abdominal pain Review of Systems Review of Systems: All systems reviewed & are unremarkable except as noted in HPI & below Physical Exam Constitutional: comfortable Eyes: PERRL, conjunctivae normal, anicteric sclerae EOM intact bilaterally ENMT: external ear and nose normal, oropharynx normal Neck: normal visual inspection Respiratory: normal respiratory effort Auscultation: + crackles Cardiovascular: Rate/Rhythm: regular rate and regular rhythm Gastrointestinal (Abdomen): normal bowel sounds, soft, nontender, no hepatosplenomegaly Musculoskeletal: Head/Neck/Chest: normocephalic and head atraumatic Neurologic: PERRL, EOMI, accommodation nl, no face palsy, no dysarthria CN's II-XI intact bilaterally Psychiatric: A+Ox3, euthymic affect Results & Data Vital Signs (Past 12 Hours) Vital Signs Temp Pulse Pulse Pulse Resp BP Pulse Ox 08/17/19 11:30 36.5 C 76 20 130/77 99 08/17/19 07:20 70 08/17/19 07:04 36.8 C 83 16 159/94 H 93 08/17/19 04:48 36.8 C 78 20 139/79 96
--- NOTE | 2019-08-17 14:02 | Palliative Care Consultation ---
Date of Consultation August 17, 2019 Assessment & Plan (1) Goals of care, counseling/discussion: -88 year old female patient with PMH CKD stage IV, htn, hypothyroidism, multiple myeloma, and others, presented to the hospital with volume overload. Echocardiogram was performed which showed EF 20-25%, severe hypokinesis and akinesis of the anterior silvestre-- indicative of a large MS that occurred possibly weeks to months prior. Patient was unaware of this heart attack. She came in due to increased dyspnea on exertion and weakness which has improved since coming in. Creatinine was 2.16 on admission, so cardiology is limited in what they are able to give patient with her history of CKD. Given patient's advanced age and comorbidities, palliative care is consulted. -Met with patient this morning in room 219 along with her nephew Yoav Sierra. Patient is pleasant, alert and oriented x4. Dr. Howell also came in and gave patient and nephew medical update. -Patient understands her medical conditions. We talked about code status and goals of care. -After discussion, patient would like to be changed to a DO NOT RESUSCITATE. -Patient's goal is to get back home where she lives independently. She is willing to go to rehab if it's recommended-- PT/OT ordered. Patient does have some caregivers a few times a week to help with household stuff, but she is mostly independent. Her other nephew Yue Sierra lives across the street and checks in on her. -Patient's POA is a nephew named Jeff Lopez. He is coming in later today to visit. Will try to stop by when he is here to discuss patient's condition and goals. -Encouraged patient to think about plans in the future if she declines. Discus sed risks and complications of having a weakened heart including heart failure exacerbations, SOB, weakness, dysrhythmias, etc. Patient understands. -Palliative care will continue to follow and assist with any medical decision making. Update [id number]: Patient's nephew/POA Jeff Lopez came to visit but was not able to stay long. He left his phone number and we will give him a call to discuss. He will not be able to visit tomorrow 08/18. No urgent concerns-- but would like to update him on patient's condition and what we discussed today. (2) Acute systolic CHF (congestive heart failure): (3) Coronary artery disease: (4) TEMITOPE (acute kidney injury): Supervising Physician Co-Signing Physician Notes Chart reviewed, patient seen and examined. No family at bedside Collaborated with BLANCA Prince PE: Patient awake and alert, mild shortness of breath with conversation HEENT: EOMI, hearing within normal limits Respirations: Unlabored at rest, diminished breath sounds bilateral bases CV: Regular rate Abdomen: Soft, nontender Agree with above note, assessment and plan as per BLANCA Prince. Patient would benefit from rehab at a SNF. Will continue to follow and assist family with medical decision making History of Present Illness Reason for Consultation: Goals of care Requesting Physician: Dr. Howell Attending Physician: Migel Akins MD History of Present Illness This 88 year old female patient with PMH CKD stage IV, htn, hypothyroidism, multiple myeloma, and others, presented to the hospital with volume overload. Echocardiogram was performed which showed EF 20-25%, severe hypokinesis and akinesis of the anterior silvestre-- indicative of a large MS that occurred possibly weeks to months prior. Patient was unaware of this heart attack. She came in due to increased dyspnea on exertion and weakness which has improved since coming in. Creatinine was 2.16 on admission, so cardiology is limited in what they are able to give patient with her history of CKD. Given patient's advanced age and comorbidities, palliative care is consulted. Thank you kindly for this consult. Palliative care team will follow as needed. Allergies Allergy/AdvReac Type Severity Reaction Status Date / Time No Known Allergies Allergy Unverified 08/15/19 14:09 Home Medications Home Medications Medication Instructions Recorded Confirmed Type amitriptyline 50 mg PO HS 10/30/18 08/15/19 History aspirin 81 mg PO QAM 10/30/18 08/15/19 History atenolol 25 mg PO HS 10/30/18 08/15/19 History atorvastatin 10 mg PO HS 10/30/18 08/15/19 History furosemide 40 mg PO BIDM 10/30/18 08/15/19 History levothyroxine 75 mcg PO DAILYBB 08/15/19 08/15/19 History multivitamin 1 tab PO QAM 08/15/19 08/15/19 History Patient History Medical History (Updated 08/17/19 @ 14:00 by BLANCA Coles) CKD (chronic kidney disease), stage IV Goals of care, counseling/discussion Hypertension (Chronic) Hypothyroid (Chronic) Multiple myeloma In surveillance since 2012, follows Dr. Aceves Osteoporosis Surgical History History of enucleation of left eyeball Family History Father Diabetes Social History Preferred Language: Amharic Communication Ability: Effective Beliefs That Will Affect Care: None Current Living Situation: Alone current occupational status: retired Other Information That Helps Us Care for You: Yes ([employer]) Feels Safe at Home: Yes Safety Concerns: Feels Safe At This Time Smoking Status: Never smoker Hx Alcohol Use: No Hx Substance Use: No Review of Systems Review of Systems: Const: + mild weakness ENMT: No dysphagia Resp: +mild SOB with activity, no cough Cardio: No chest pain, no edema GI: No abdominal pain, no N/V MS: No musculoskeletal pain Neuro: No confusion Psych: No anxiety, no depression Physical Exam Constitutional: + overweight; no acute distress ENMT: external ear and nose normal, oropharynx normal Respiratory: normal respiratory effort, lungs clear to auscultation Auscultation: + diminished lung sounds Cardiovascular: Rate/Rhythm: regular rate and regular rhythm Extremities: no edema Gastrointestinal (Abdomen): Inspection/Auscultation: normal bowel sounds Percussion/Palpation: abdomen soft; abdomen nontender Neurologic: moves all extremities and awake; not confused Psychiatric: A+Ox3, euthymic affect Insight: good insight Results & Data Vital Signs (Past 12 Hours) Vital Signs Temp Pulse Pulse Pulse Resp BP Pulse Ox 08/17/19 11:30 36.5 C 76 20 130/77 99 08/17/19 07:20 70 08/17/19 07:04 36.8 C 83 16 159/94 H 93 08/17/19 04:48 36.8 C 78 20 139/79 96 Time Spent Midlevel 70 minutes with >50% of the time spent at bedside with patient and family discussing condition and GOC.
[2019-08-17] MEDS: AMITRIPTYLINE HCL 50 MG TAB PO SCH (21:12)
[2019-08-17] MEDS: METOPROLOL SUCC 25MG EXT REL TAB PO SCH (21:12)
[2019-08-17] MEDS: ATORVASTATIN 10 MG TAB PO SCH (21:12)
[2019-08-18] MEDS: LEVOTHYROXINE SODIUM 75 MCG TABLET PO SCH (05:36)
[2019-08-18] MEDS: HEPARIN SOD 5,000 UNIT/0.5 ML VIAL SQ SCH ×3 (05:37→21:26)
[2019-08-18 06:11] LABS: Hematocrit (blood only) 38.5 % (37-47); Hemoglobin 12.5 g/dL (12.0-16.0); Mean Corpuscular Hemoglobin 33.7 pg (25-34); Mean Corpuscular Hgb Conc 32.5 g/dL (32-36); Mean Corpuscular Volume 103.8 fL (80-100); Mean Platelet Volume 9.2 fL (7.4-10.4); Platelet Count 229 K/uL (130-400); RDW Coefficient of Variation 14.9 % (11.5-14.5); RDW Standard Deviation 56.5 fL (36.4-46.3); Red Blood Count 3.71 M/uL (4.2-5.4); White Blood Count 6.48 K/uL (4.8-10.8)
[2019-08-18 06:45] LABS: Albumin Level 2.9 gm/dl (3.4-5.0); BUN Creatinine Ratio 14.9 (10-20); Calcium 9.5 mg/dl (8.5-10.1); Creatinine Clr Calc Pharmacy 21.9 ml/min; Est GFR (Non-African American) 21.5; Magnesium 2.6 mg/dl (1.8-2.4); Potassium 4.8 mmol/L (3.5-5.1)
[2019-08-18 06:48] LABS: Albumin Globulin Ratio 0.5 (0.9-2); Bilirubin,Total 0.5 mg/dl (0.2-1); Globulin 5.5 gm/dl (2.5-4.0); Total Protein 8.4 gm/dl (6.4-8.2)
[2019-08-18] MEDS: FUROSEMIDE 60 MG in SYRINGE 0 ML IV SCH ×2 (08:22→18:22)
[2019-08-18] MEDS: ASPIRIN 81 MG ECTAB PO SCH (08:22)
--- NOTE | 2019-08-18 08:26 | Hospitalist Progress Note ---
Date of Service August 18, 2019 Assessment & Plan (1) Acute systolic CHF (congestive heart failure): Coronary artery disease -main presenting symptoms of shortness of breath on exertion -echocardiogram on this admission compared to that of January 2018 changed from normal to severely reduced ejection fraction of 20 to 25% and newly detected wall motion abnormalities with hypokinetic/akinetic anterior, anterior lateral, anterior septal, and apical wall and associated wall thinning in these areas -as per cardiology evaluation echocardiogram findings suggest significant coronary artery disease without active ischemia; "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 Given the fact there is significant wall thinning on echocardiogram it does appear to be old" -cardiac catheterization is not recommended at this time given these cardiac changes appear old and because of poor renal function at baseline -currently medical management -continue aspirin and atorvastatin -is on metoprolol succinate 12.5 mg qhs -medical management with diuretic: currently on Lasix 60 IV BID. -CXR 08/17/19: Cardiomegaly with unchanged pulmonary edema. Stable pleural effusions with persistent bibasilar opacities -08/18/19: continue IV diuretics given pulmonary edema still present on clinical exam. possible that patient has pleural effusions concurrently but would like to avoid invasive thoracentesis given that patient is on room air. would hold any scheculed potassium at this time given serum potassium is 4.8. further cardiology recommendations appreciated -on room air, encourage ambulation (2) Demand ischemia: elevated troponins (on this admission) secondary to demand ischemia and chronic kidney disease stage IV -patient denied recent chest pains -admission troponins were 0.236, 0.264, 0.323 -medical management as above -no current active chest pains (3) CKD (chronic kidney disease), stage IV: -monitor renal function while on Lasix diuretic -generally stable creatinine around 2 during hospital stay (4) Hypertension: -blood pressure controlled with Toprol XL and Lasix (5) Hypothyroid: -Levothyroxine 75 mcg daily (6) Multiple myeloma: -in remission per outpatient record. (7) DVT prophylaxis: -SQ Heparin as per palliative care evaluation the code status is DNR/DNI nephotto [phone] Subjective Patient seen and examined eating breakfast. continues to be on room air but lung exam with still lot of congestion. patient does not feel acutely short of breath when at rest. she is encouraged to do more activities today. no chest pain. no palpitations. no acute events on telemetry. no nausea. no vomiting Review of Systems Review of Systems: All systems reviewed & are unremarkable except as noted in HPI & below Physical Exam Constitutional: comfortable Eyes: PERRL, conjunctivae normal, anicteric sclerae EOM intact bilaterally ENMT: external ear and nose normal, oropharynx normal Neck: normal visual inspection Respiratory: normal respiratory effort Auscultation: + crackles Cardiovascular: Rate/Rhythm: regular rate and regular rhythm Gastrointestinal (Abdomen): normal bowel sounds, soft, nontender, no hepatosplenomegaly Musculoskeletal: Head/Neck/Chest: normocephalic and head atraumatic Neurologic: PERRL, EOMI, accommodation nl, no face palsy, no dysarthria CN's II-XI intact bilaterally Psychiatric: A+Ox3, euthymic affect Results & Data Vital Signs (Past 12 Hours) Vital Signs Temp Pulse Pulse Resp BP Pulse Ox 08/18/19 07:20 36.4 C L 88 22 132/87 96 08/18/19 03:25 36.5 C 99 H 22 153/84 H 96 08/18/19 00:31 84 08/17/19 23:34 36.8 C 80 16 130/77 92
--- NOTE | 2019-08-18 10:39 | Cardiology Progress Note ---
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 Given the fact there is significant wall thinning on echocardiogram it does appear to be old and given her severe chronic kidney disease and lack of overt symptoms at this time I do not see any benefit for cardiac catheterization. I believe the most prudent course of action at this point is to maximize her medical therapy, unfortunately, given her relative bradycardia and severe renal impairment will be significantly limited in her medication options. She continues to diuresis so we will continue with twice daily Lasix 60 mg for now. Her renal function is also remained stable. Continue to monitor on telemetry with strict I's and O's. (2) CKD (chronic kidney disease), stage IV: (3) Multiple myeloma: (4) Coronary artery disease: Given the echocardiogram findings it does suggest significant coronary artery disease without active ischemia. Agree with continue her aspirin and atorvastatin. Subjective Patient seen and examined, states that her breathing is unchanged today. Still not back to baseline but improved from admission. Denies any chest pain, palpitations, lightheadedness, dizziness or syncope. Telemetry reviewed: Normal sinus rhythm without arrhythmia or significant ectopy. Review of Systems Review of Systems: All systems reviewed & are unremarkable except as noted in HPI & below Physical Exam Physical Exam: General: Awake, alert and oriented x 3. No acute distress. HEENT: Normocephalic, atraumatic. Pupils equal, round and reactive to light and accommodation. Extraocular muscles are intact. Anicteric sclera. Moist mucous membranes. Neck: No JVD. No bruit. Cardiovascular: Regular. Positive S-4. Normal S-1 and S-2. No S-3. 3/6 mid to late systolic ejection murmur, greatest at the right sternal border, second intercostal space with radiation to the bilateral carotids. No rubs. Pulmonary: Clear to auscultation bilaterally. No rales, rhonchi, or wheezing. Abdomen: Bowel sounds x 4, soft. No rebound, guarding or tenderness. No organomegaly. Extremities: No clubbing, cyanosis or edema. +2 pedal pulses bilaterally. Skin: Warm and dry. Results & Data Vital Signs (Past 12 Hours) Vital Signs Temp Pulse Pulse Resp BP Pulse Ox 08/18/19 07:20 36.4 C L 88 22 132/87 96 08/18/19 03:25 36.5 C 99 H 22 153/84 H 96 08/18/19 00:31 84 08/17/19 23:34 36.8 C 80 16 130/77 92
[2019-08-18] MEDS: AMITRIPTYLINE HCL 50 MG TAB PO SCH (21:27)
[2019-08-18] MEDS: METOPROLOL SUCC 25MG EXT REL TAB PO SCH (21:27)
[2019-08-18] MEDS: ATORVASTATIN 10 MG TAB PO SCH (21:28)
[2019-08-19] MEDS: HEPARIN SOD 5,000 UNIT/0.5 ML VIAL SQ SCH ×2 (05:58→14:01)
[2019-08-19] MEDS: LEVOTHYROXINE SODIUM 75 MCG TABLET PO SCH (05:58)
[2019-08-19 07:47] LABS: BUN Creatinine Ratio 15.5 (10-20); Calcium 9.4 mg/dl (8.5-10.1); Creatinine Clr Calc Pharmacy 21.3 ml/min; Est GFR (African American) 24.7; Est GFR (Non-African American) 21.3; Potassium 4.1 mmol/L (3.5-5.1)
[2019-08-19] MEDS: ASPIRIN 81 MG ECTAB PO SCH (07:51)
[2019-08-19] MEDS: FUROSEMIDE 60 MG in SYRINGE 0 ML IV SCH (09:09)
--- NOTE | 2019-08-19 09:54 | XRay Report ---
XR chest 2V PA/lateral CLINICAL HISTORY: follow lung infiltrates COMPARISON STUDY: Chest radiograph the 2018. FINDINGS: There is no pneumothorax. Pulmonary edema persists. Right pleural effusion has slightly inc reased. Left pleural effusion is similar to prior exam. There are persistent bibasilar opacities. IMPRESSION: 1. Persistent moderate bilateral pleural effusions with associated bibasilar opacities which could re flect atelectasis or pneumonia. 2. No change in pulmonary edema. ACT 112: Negative or not required by law. Electronically signed by: Landon Grijalva M.D. 08/19/2019 9:53 AM
--- NOTE | 2019-08-19 10:15 | Hospitalist Progress Note ---
Date of Service August 19, 2019 Assessment & Plan (1) Acute systolic CHF (congestive heart failure): Coronary artery disease -main presenting symptoms of shortness of breath on exertion -echocardiogram on this admission compared to that of January 2018 changed from normal to severely reduced ejection fraction of 20 to 25% and newly detected wall motion abnormalities with hypokinetic/akinetic anterior, anterior lateral, anterior septal, and apical wall and associated wall thinning in these areas -as per cardiology evaluation echocardiogram findings suggest significant coronary artery disease without active ischemia; "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 Given the fact there is significant wall thinning on echocardiogram it does appear to be old" -cardiac catheterization is not recommended at this time given these cardiac changes appear old and because of poor renal function at baseline -currently medical management -continue aspirin and atorvastatin -is on metoprolol succinate 12.5 mg qhs -medical management with diuretic: had been on Lasix 60 IV BID. -CXR 1 view 08/17/19: Cardiomegaly with unchanged pulmonary edema. Stable pleural effusions with persistent bibasilar opacities -CXR 2 view 08/19/19 show " Pulmonary edema persists. Right pleural effusion has slightly increased. Left pleural effusion is similar to prior exam. There are persistent bibasilar opacities." will transition from Lasix 60 mg IV BID to 40 mg IV TID with Metolazone (2) Demand ischemia: elevated troponins (on this admission) secondary to demand ischemia and chronic kidney disease stage IV -patient denied recent chest pains -admission troponins were 0.236, 0.264, 0.323 -medical management as above -no current active chest pains (3) CKD (chronic kidney disease), stage IV: -monitor renal function while on Lasix diuretic -generally stable creatinine around 2 during hospital stay (4) Hypertension: -blood pressure controlled with Toprol XL and Lasix (5) Hypothyroid: -Levothyroxine 75 mcg daily (6) Multiple myeloma: -in remission per outpatient record. (7) DVT prophylaxis: -SQ Heparin as per palliative care evaluation the code status is DNR/DNI nephotto [phone] Subjective Patient on room air. she was able to ambulate to bathroom. Chest X ray on 08/19/19 has not shown significant improvements to current IV diuresis. Discussed with patient about modifying diuretic treatment. Patient denies chest pain. no palpitations. no abdominal pain. no dizziness. no lightheadedness. able to make the urine Review of Systems 2 Review of Systems: All systems reviewed & are unremarkable except as noted in HPI & below Physical Exam Constitutional: comfortable Eyes: PERRL, conjunctivae normal, anicteric sclerae EOM intact bilaterally ENMT: external ear and nose normal, oropharynx normal Neck: normal visual inspection Respiratory: normal respiratory effort Auscultation: + crackles (of lung bases) Cardiovascular: Rate/Rhythm: regular rate and regular rhythm Gastrointestinal (Abdomen): normal bowel sounds, soft, nontender, no hepatosplenomegaly Musculoskeletal: Head/Neck/Chest: normocephalic and head atraumatic Neurologic: PERRL, EOMI, accommodation nl, no face palsy, no dysarthria CN's II-XI intact bilaterally Psychiatric: A+Ox3, euthymic affect Results & Data Vital Signs (Past 12 Hours) Vital Signs Temp Pulse Pulse Resp BP Pulse Ox 08/19/19 07:05 36.7 C 94 H 19 126/80 100 08/19/19 03:28 36.7 C 89 20 130/80 93 08/18/19 23:38 36.9 C 92 H 20 137/75 94 08/18/19 23:20 75
[2019-08-19] MEDS: metOLazone 2.5 MG TABLET PO SCH ×2 (14:02→20:27)
[2019-08-19] MEDS: FUROSEMIDE 40 MG in SYRINGE 0 ML IV SCH ×2 (14:02→20:26)
[2019-08-19] MEDS ORDERED: WARFARIN SOD 5 MG TAB PO ONE (16:11)
[2019-08-19] MEDS ORDERED: METOPROLOL TARTRATE 25 MG TAB PO STA (16:14)
[2019-08-19] MEDS ORDERED: METOPROLOL TARTRATE 1 MG/ML VIAL IV STA (16:15)
[2019-08-19] MEDS ORDERED: HEPARIN SODIUM/DEXTROSE 25,000 UNITS/500 ML BAG IV SCH (16:15)
[2019-08-19] MEDS ORDERED: METOPROLOL TARTRATE 1 MG/ML VIAL IV PRN (16:15)
[2019-08-19 16:42] LABS: Prothrombin Time 10.5 Seconds (9.0-12.0)
[2019-08-19] MEDS ORDERED: HEPARIN IV BOLUS 5,000 UNITS in SYRINGE 0 ML IV ONE (16:45)
[2019-08-19] MEDS: AMITRIPTYLINE HCL 50 MG TAB PO SCH (20:25)
[2019-08-19] MEDS: ATORVASTATIN 10 MG TAB PO SCH (20:26)
[2019-08-19] MEDS: METOPROLOL SUCC 25MG EXT REL TAB PO SCH (20:27)
[2019-08-19 23:56] LABS: Partial Thromboplastin Ratio > 5.1
[2019-08-19 23:57] LABS: Partial Thromboplastin Time > 139.0 Seconds (21.0-31.0)
[2019-08-20 02:08] LABS: Partial Thromboplastin Ratio > 5.1; Partial Thromboplastin Time > 139.0 Seconds (21.0-31.0)
[2019-08-20 03:15] LABS: Hematocrit (blood only) 35.4 % (37-47); Mean Corpuscular Hemoglobin 34.3 pg (25-34); Mean Corpuscular Hgb Conc 33.9 g/dL (32-36); Mean Corpuscular Volume 101.1 fL (80-100); Platelet Count 216 K/uL (130-400); RDW Coefficient of Variation 14.6 % (11.5-14.5); White Blood Count 6.93 K/uL (4.8-10.8)
[2019-08-20 03:37] LABS: BUN Creatinine Ratio 16.4 (10-20); Calcium 8.8 mg/dl (8.5-10.1); Creatinine Clr Calc Pharmacy 20.4 ml/min; Est GFR (African American) 23.4; Est GFR (Non-African American) 20.2
[2019-08-20] MEDS: LEVOTHYROXINE SODIUM 75 MCG TABLET PO SCH (05:45)
[2019-08-20] MEDS: metOLazone 2.5 MG TABLET PO SCH ×3 (08:08→21:44)
[2019-08-20] MEDS: ASPIRIN 81 MG ECTAB PO SCH (08:09)
[2019-08-20] MEDS: FUROSEMIDE 40 MG in SYRINGE 0 ML IV SCH ×3 (08:09→21:44)
[2019-08-20 11:09] LABS: Partial Thromboplastin Ratio 3.6
[2019-08-20 11:23] LABS: Partial Thromboplastin Time 97.3 Seconds (21.0-31.0)
[2019-08-20] MEDS: METOPROLOL SUCC 25MG EXT REL TAB PO SCH ×2 (12:46→21:44)
--- NOTE | 2019-08-20 13:52 | Hospitalist Progress Note ---
Date of Service August 20, 2019 Assessment & Plan (1) Acute systolic CHF (congestive heart failure): Coronary artery disease -main presenting symptoms of shortness of breath on exertion -echocardiogram on this admission compared to that of January 2018 changed from normal to severely reduced ejection fraction of 20 to 25% and newly detected wall motion abnormalities with hypokinetic/akinetic anterior, anterior lateral, anterior septal, and apical wall and associated wall thinning in these areas -as per cardiology evaluation echocardiogram findings suggest significant coronary artery disease without active ischemia; "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 Given the fact there is significant wall thinning on echocardiogram it does appear to be old" -cardiac catheterization is not recommended at this time given these cardiac changes appear old and because of poor renal function at baseline -currently medical management -continue aspirin and atorvastatin -is on metoprolol succinate 12.5 mg qhs -medical management with diuretic: had been on Lasix 60 IV BID. -CXR 1 view 08/17/19: Cardiomegaly with unchanged pulmonary edema. Stable pleural effusions with persistent bibasilar opacities -CXR 2 view 08/19/19 show " Pulmonary edema persists. Right pleural effusion has slightly increased. Left pleural effusion is similar to prior exam. There are persistent bibasilar opacities." will transition from Lasix 60 mg IV BID to 40 mg IV TID with Metolazone -continue Metolazone with TID IV Lasix (2) Demand ischemia: elevated troponins (on this admission) secondary to demand ischemia and chronic kidney disease stage IV -patient denied recent chest pains -admission troponins were 0.236, 0.264, 0.323 -medical management as above -no current active chest pains Atrial Fibrillation with Rapid Ventricular response -patient on telemetry went intro atrial fibrillation at 08/19/19 in afternoon with rapid ventricular response; patient was started heparin IV with bolus and warfarin 5 mg daily, titrated up metoprolol -as of 08/20/19, heart rates still not at goal and likely will need further beta jesús titration; patient remains asymptomatic; cardiology service also stopped heparin drip as of 08/20/19 - appreciate their notes and recommendations but it would appear that there is concern of fall risks of the patient if on blood thinners residential - will hold off further warfarin for now -currently scheduled for metoprolol 12.5 mg BID - hospitalist will order additional 12.5 mg tablet for 08/20/19 as heart rates continue to be above 100 bpm with atrial fibrillation (3) CKD (chronic kidney disease), stage IV: -monitor renal function while on Lasix diuretic -generally stable creatinine around 2 during hospital stay (4) Hypertension: -blood pressure controlled with beta jesús and diuretic (5) Hypothyroid: -Levothyroxine 75 mcg daily (6) Multiple myeloma: -in remission per outpatient record. (7) DVT prophylaxis: -SQ Heparin as per palliative care evaluation the code status is DNR/DNI nephew [phone] Subjective Patient continues to be in atrial fibrillation. Heart rates have been above 100 beats per minute. Patient is asymptomatic. Patient on room air. denies shortness of breath. Cardiology service stopped heparin drip Review of Systems Review of Systems: All systems reviewed & are unremarkable except as noted in HPI & below Physical Exam Constitutional: comfortable Eyes: PERRL, conjunctivae normal, anicteric sclerae EOM intact bilaterally ENMT: external ear and nose normal, oropharynx normal Neck: normal visual inspection Respiratory: normal respiratory effort Auscultation: + crackles (of lung bases) Cardiovascular: Rate/Rhythm: + tachycardic and + irregularly irregular Gastrointestinal (Abdomen): normal bowel sounds, soft, nontender, no hepatosp lenomegaly Musculoskeletal: Head/Neck/Chest: normocephalic and head atraumatic Neurologic: PERRL, EOMI, accommodation nl, no face palsy, no dysarthria CN's II-XI intact bilaterally Psychiatric: A+Ox3, euthymic affect Results & Data Vital Signs (Past 12 Hours) Vital Signs Temp Pulse Pulse Resp BP Pulse Ox 08/20/19 11:40 36.9 C 86 16 132/63 95 08/20/19 07:55 36.5 C 90 18 124/62 98 08/20/19 02:52 36.5 C 94 H 19 118/76 94
--- NOTE | 2019-08-20 14:02 | Cardiology Progress Note ---
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 Given the fact there is significant wall thinning on echocardiogram it does appear to be old and given her severe chronic kidney disease and lack of overt symptoms at this time I do not see any benefit for cardiac catheterization. I believe the most prudent course of action at this point is to maximize her medical therapy, unfortunately, given her relative bradycardia and severe renal impairment will be significantly limited in her medication options. She continues to diuresis so we will continue with twice daily Lasix 60 mg for now. I will hold it for the a.m. and she will be reevaluated clinically. Her renal function is also remained stable. Continue to monitor on telemetry with strict I's and O's. I suspect that she will be ready for transfer to SNF in the a.m. (2) CKD (chronic kidney disease), stage IV: (3) Multiple myeloma: (4) Coronary artery disease: Given the echocardiogram findings it does suggest significant coronary artery disease without active ischemia. Agree with continue her aspirin and atorvastatin. (5) Atrial fibrillation with rapid ventricular response: New onset, appears to be tolerating rather well clinically. Given her severe mitral regurgitation and severe left atrial enlargement I do not believe there will be any benefit in attempting rhythm control at this time She is also having difficulty maintaining a therapeutic PTT and she is in extreme fall risk so her heparin will be discontinued at this time and oral anticoagulants will not be started either We will continue to uptitrate beta-jesús as her blood pressure and heart rate allow. Subjective Patient seen and examined oob in chair, states that her breathing is unchanged today. Still not back to baseline but improved from admission. Denies any chest pain, palpitations, lightheadedness, dizziness or syncope. Telemetry reviewed: Atrial fibrillation with variable rate response 80s to 100s Review of Systems Review of Systems: All systems reviewed & are unremarkable except as noted in HPI & below Physical Exam Physical Exam: General: Awake, alert and oriented x 3. No acute distress. HEENT: Normocephalic, atraumatic. Pupils equal, round and reactive to light and accommodation. Extraocular muscles are intact. Anicteric sclera. Moist mucous membranes. Neck: No JVD. No bruit. Cardiovascular: irregularly irregular. Positive S-4. Normal S-1 and S-2. No S-3. 3/6 holosystolic ejection murmur, left sternal border, mid-clavicular line with radiation to the axilla. No rubs. Pulmonary: Clear to auscultation bilaterally. No rales, rhonchi, or wheezing. Abdomen: Bowel sounds x 4, soft. No rebound, guarding or tenderness. No organomegaly. Extremities: No clubbing, cyanosis or edema. +2 pedal pulses bilaterally. Skin: Warm and dry. Results & Data Vital Signs (Past 12 Hours) Vital Signs Temp Pulse Pulse Resp BP Pulse Ox 08/20/19 11:40 36.9 C 86 16 132/63 95 08/20/19 07:55 36.5 C 90 18 124/62 98 08/20/19 02:52 36.5 C 94 H 19 118/76 94
[2019-08-20] MEDS ORDERED: METOPROLOL TARTRATE 25 MG TAB PO STA (14:05)
[2019-08-20] MEDS ORDERED: WARFARIN SOD 5 MG TAB PO SCH (16:00)
[2019-08-20] MEDS: ATORVASTATIN 10 MG TAB PO SCH (21:44)
[2019-08-20] MEDS: AMITRIPTYLINE HCL 50 MG TAB PO SCH (21:44)
[2019-08-21] MEDS: LEVOTHYROXINE SODIUM 75 MCG TABLET PO SCH (05:30)
[2019-08-21 07:02] LABS: BUN Creatinine Ratio 18.4 (10-20); Calcium 9.3 mg/dl (8.5-10.1); Creatinine Clr Calc Pharmacy 18.3 ml/min; Est GFR (African American) 20.7; Est GFR (Non-African American) 17.9; Potassium 3.5 mmol/L (3.5-5.1)
[2019-08-21] MEDS ORDERED: POTASSIUM CHLORIDE 20 MEQ TABCR PO ONE (08:00)
[2019-08-21] MEDS: METOPROLOL SUCC 25MG EXT REL TAB PO SCH (09:15)
[2019-08-21] MEDS: ASPIRIN 81 MG ECTAB PO SCH (09:16)
[2019-08-21] MEDS: MULTIVITAMIN TAB PO SCH (13:15)
[2019-08-21] MEDS ORDERED: METOPROLOL SUCC 25MG EXT REL TAB PO STA (13:16)
--- NOTE | 2019-08-21 13:32 | Hospitalist Progress Note ---
Date of Service August 21, 2019 Assessment & Plan (1) Acute systolic CHF (congestive heart failure): Coronary artery disease Bilateral pleural effusion -main presenting symptoms of shortness of breath on exertion -echocardiogram on this admission compared to that of January 2018 changed from normal to severely reduced ejection fraction of 20 to 25% and newly detected wall motion abnormalities with hypokinetic/akinetic anterior, anterior lateral, anterior septal, and apical wall and associated wall thinning in these areas -as per cardiology evaluation echocardiogram findings suggest significant coronary artery disease without active ischemia; "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 Given the fact there is significant wall thinning on echocardiogram it does appear to be old" -cardiac catheterization is not recommended at this time given these cardiac c hanges appear old and because of poor renal function at baseline -currently medical management -continue aspirin and atorvastatin -is on metoprolol succinate 12.5 mg qhs -medical management with diuretic: had been on Lasix 60 IV BID. -CXR 1 view 08/17/19: Cardiomegaly with unchanged pulmonary edema. Stable pleural effusions with persistent bibasilar opacities -CXR 2 view 08/19/19 show " Pulmonary edema persists. Right pleural effusion has slightly increased. Left pleural effusion is similar to prior exam. There are persistent bibasilar opacities." transitioned from Lasix 60 mg IV BID to 40 mg IV TID with Metolazone -08/21/19 start transition to oral furosemide as 40 mg PO TID without metolazone (2) Demand ischemia: elevated troponins (on this admission) secondary to demand ischemia and chronic kidney disease stage IV -patient denied recent chest pains -admission troponins were 0.236, 0.264, 0.323 -medical management as above -no current active chest pains Atrial Fibrillation with Rapid Ventricular response -patient on telemetry went intro atrial fibrillation at 08/19/19 in afternoon with rapid ventricular response; patient was started heparin IV with bolus and warfarin 5 mg daily, titrated up metoprolol -cardiology service also stopped heparin drip as of 08/20/19 and recommended against systemic anticoagulation due to fall risk concerns. patient received oral metoprolol x 3 doses -08/21/19: patient received metoprolol 12.5 mg in AM, add on 25 mg daily tablet (3) CKD (chronic kidney disease), stage IV: acute kidney injury on chronic kidney disease stage IV -monitor renal function while on Lasix diuretic -generally stable creatinine around 2 during hospital stay, however creatinine rising to 2.38 as of 08/21/19 -Lasix changed from IV to oral and metolazone stopped on 08/21/19, trend creatinine (4) Hypertension: -blood pressure controlled with beta jesús and diuretic (5) Hypothyroid: -Levothyroxine 75 mcg daily (6) Multiple myeloma: -in remission per outpatient record. patient will be awaiting a bed to [facility] for physical rehabilitation but no beds available as of this time on Saturday08/21/19 and will stay in hospital throughout weekend (7) DVT prophylaxis: -SQ Heparin as per palliative care evaluation the code status is DNR/DNI nephew [phone] Subjective Patient continues to be in atrial fibrillation. Currently heart rates in low 100s, patient has been at times on telemetry noted to be in 120s to 130s. Patient denies palpitations of chest pains. continues to be on room air. no shortness of breath at rest. no dizziness. no lightheadedness Review of Systems Review of Systems: All systems reviewed & are unremarkable except as noted in HPI & below Physical Exam Constitutional: comfortable Eyes: PERRL, conjunctivae normal, anicteric sclerae EOM intact bilaterally ENMT: external ear and nose normal, oropharynx normal Neck: normal visual inspection Respiratory: normal respiratory effort (lung congestion and audible fluid sounds) Cardiovascular: Rate/Rhythm: + tachycardic and + irregularly irregular Gastrointestinal (Abdomen): normal bowel sounds, soft, nontender, no hepatosplenomegaly Musculoskeletal: Head/Neck/Chest: normocephalic and head atraumatic Neurologic: PERRL, EOMI, accommodation nl, no face palsy, no dysarthria CN's II-XI intact bilaterally Psychiatric: A+Ox3, euthymic affect Results & Data Vital Signs (Past 12 Hours) Vital Signs Temp Pulse Pulse Resp BP Pulse Ox 08/21/19 12:00 36.9 C 105 H 20 129/84 95 08/21/19 08:00 37.2 C 105 H 18 137/80 95 08/21/19 03:08 36.5 C 92 H 20 120/69 95
[2019-08-21] MEDS ORDERED: FUROSEMIDE 40 MG TAB PO SCH ×2 (14:00→17:00)
--- NOTE | 2019-08-21 16:05 | Cardiology Progress Note ---
Date of Service August 21, 2019 Assessment & Plan (1) Acute systolic CHF (congestive heart failure): Unfortunately, we have now found that she is suffering from 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 Given the fact there is significant wall thinning on echocardiogram it does appear to be old and given her severe chronic kidney disease and lack of overt symptoms at this time I do not see any benefit for cardiac catheterization. I believe the most prudent course of action at this point is to maximize her medical therapy, unfortunately, given her relative bradycardia and severe renal impairment will be significantly limited in her medication options. She has diuresed well and now clinically is back to baseline. She does not examine volume overloaded Her IV diuretics will be discontinued and she will be started on oral Given her renal impairment I will change her to Lasix 60 mg p.o. twice daily Her renal function will need to be followed closely as well her volume status clinically. It is okay to transfer to general medical floor or to SNF from cardiac standpoint (2) CKD (chronic kidney disease), stage IV: (3) Multiple myeloma: (4) Coronary artery disease: Given the echocardiogram findings it does suggest significant coronary artery disease without active ischemia. Agree with continue her aspirin and atorvastatin. (5) Atrial fibrillation with rapid ventricular response: New onset, appears to be tolerating rather well clinically. Given her severe mitral regurgitation and severe left atrial enlargement I do not believe there will be any benefit in attempting rhythm control at this time She is also having difficulty maintaining a therapeutic PTT and she is in extreme fall risk so her heparin will be discontinued at this time and oral anticoagulants will not be started either We will continue to uptitrate beta-jesús as her blood pressure and heart rate allow. I will increase her metoprolol succinate to 37.5 mg daily starting tomorrow. Subjective Patient seen and examined, out of bed in chair and states her breathing is significantly improved today. She states her breathing is now back to baseline clinically. She did ambulate with physical therapy today as well. Denies any chest pain, palpitations, lightheadedness, dizziness or syncope. Telemetry reviewed: Atrial fibrillation with variable rate response 80s to 100s Review of Systems Review of Systems: All systems reviewed & are unremarkable except as noted in HPI & below Physical Exam Physical Exam: General: Awake, alert and oriented x 3. No acute distress. HEENT: Normocephalic, atraumatic. Pupils equal, round and reactive to light and accommodation. Extraocular muscles are intact. Anicteric sclera. Moist mucous membranes. Neck: No JVD. No bruit. Cardiovascular: irregularly irregular, unable to appreciate murmur, rub or gallop. Pulmonary: Clear to auscultation bilaterally. No rales, rhonchi, or wheezing. Abdomen: Bowel sounds x 4, soft. No rebound, guarding or tenderness. No organomegaly. Extremities: No clubbing, cyanosis or edema. +2 pedal pulses bilaterally. Skin: Warm and dry. Results & Data Vital Signs (Past 12 Hours) Vital Signs Temp Pulse Resp BP Pulse Ox 08/21/19 15:39 36.7 C 95 H 20 116/74 97 08/21/19 12:00 36.9 C 105 H 20 129/84 95 08/21/19 08:00 37.2 C 105 H 18 137/80 95
[2019-08-21] MEDS: FUROSEMIDE 20 MG TAB PO SCH (17:11)
[2019-08-21] MEDS: ATORVASTATIN 10 MG TAB PO SCH (20:27)
[2019-08-21] MEDS: AMITRIPTYLINE HCL 50 MG TAB PO SCH (20:27)
[2019-08-22] MEDS: LEVOTHYROXINE SODIUM 75 MCG TABLET PO SCH (05:35)
[2019-08-22] MEDS: FUROSEMIDE 20 MG TAB PO SCH ×2 (08:00→16:15)
[2019-08-22] MEDS: METOPROLOL SUCC 25MG EXT REL TAB PO SCH (08:00)
[2019-08-22] MEDS: MULTIVITAMIN TAB PO SCH (08:00)
[2019-08-22] MEDS: ASPIRIN 81 MG ECTAB PO SCH (08:00)
[2019-08-22 08:31] LABS: BUN Creatinine Ratio 21.2 (10-20); Calcium 9.6 mg/dl (8.5-10.1); Creatinine Clr Calc Pharmacy 16.2 ml/min; Est GFR (African American) 18.7; Est GFR (Non-African American) 16.1; Potassium 3.7 mmol/L (3.5-5.1)
[2019-08-22] MEDS ORDERED: METOPROLOL SUCC 25MG EXT REL TAB PO SCH (09:00)
--- NOTE | 2019-08-22 10:49 | XRay Report ---
XR chest 2V PA/lateral CLINICAL HISTORY: follow lung infiltrates COMPARISON STUDY: Chest radiograph August 19, 2019. FINDINGS: There is no pneumothorax. Moderate bilateral pleural effusions have improved. Pulmonary bhavna ma has improved. Cardiomediastinal silhouette is stable. IMPRESSION: Interval improvement in bilateral pleural effusions and pulmonary edema since exam of Mo 2018. ACT 112: Negative or not required by law. Electronically signed by: Landon Grijalva M.D. 08/22/2019 10:47 AM
--- NOTE | 2019-08-22 13:20 | Cardiology Progress Note ---
Date of Service August 22, 2019 Assessment & Plan (1) Atrial fibrillation with rapid ventricular response: (2) Multiple myeloma: (3) Coronary artery disease: (4) Multiple myeloma: (5) Acute systolic CHF (congestive heart failure): (6) Ischemic cardiomyopathy: (7) CKD (chronic kidney disease), stage IV: The patient is currently clinically stable. Do not believe any additional cardiac work-up is indicated. She is maintaining sinus rhythm. Her acute on chronic renal failure precludes us from using an LEX inhibitor. Subjective The patient is resting comfortably. She has no complaints at present. She is maintaining sinus rhythm on the monitor. Review of Systems Review of Systems: All systems reviewed & are unremarkable except as noted in HPI & below Nothing additional to add. Physical Exam Physical Exam: General: no acute distress and stated age Head: normocephalic, no masses, lesions, tenderness or abnormalities Eyes: conjunctiva are pink and non-injected, sclera clear Neck: supple, no adenopathy, no bruits, normal jugular venous pulse, no hepatojugular reflux Chest: normal shape and normal respiratory effort Lungs: clear to auscultation and percussion Cardiac Exam: - regular rate & rhythm, no murmurs gallops or rubs - normal S1, normal S2 Pulses: 2(+) throughout Abdomen: abdomen soft, non-tender, no abnormal masses and no hepatosplenomegaly Musculoskeletal: no gait disturbance, no joint inflammation, no deforming arthritis Extremities: no edema and no cyanosis Neuro: grossly normal exam Results & Data Vital Signs (Past 12 Hours) Vital Signs Temp Pulse Pulse Resp BP Pulse Ox 08/22/19 11:50 36.4 C L 94 H 18 122/77 95 08/22/19 08:15 36.9 C 92 H 18 137/85 98 08/22/19 08:00 87 08/22/19 03:39 36.5 C 83 18 118/74 97 Laboratory Results Laboratory Results - last 24 hr 08/22/19 07:59 Sodium 134 L Potassium 3.7 Chloride 96 L Carbon Dioxide 29 Anion Gap 9.0 BUN 55 H Creatinine 2.59 H Est Cr Clr Drug Dosing 16.2 Est GFR ( Amer) 18.7 Est GFR (Non-Af Amer) 16.1 BUN/Creatinine Ratio 21.2 H Glucose 123 H Calcium 9.6 Medications Administered Current Inpatient Medications Acetaminophen (Tylenol) 325 mg PO Q6H PRN PRN Reason: Pain or Fever Stop: 09/14/19 17:32 Amitriptyline HCl (Elavil) 50 mg PO [facility] Stop: 09/14/19 20:59 Last Admin: 08/21/19 20:27 Dose: 50 mg Documented by: Aspirin (Ecotrin Ectab) 81 mg PO [facility] Stop: 09/15/19 08:59 Last Admin: 08/22/19 08:00 Dose: 81 mg Documented by: Atorvastatin Calcium (Lipitor) 10 mg PO [facility] Stop: 09/14/19 20:59 Last Admin: 08/21/19 20:27 Dose: 10 mg Documented by: [facility] Stop: 09/20/19 16:59 Last Admin: 08/22/19 08:00 Dose: 60 mg Documented by: Levothyroxine S[facility] (Synthroid) [facility] Stop: 09/15/19 06:29 Last Admin: 08/22/19 05:35 Dose: 75 mcg Documented by: Metoprolol Succinate (Toprol Xl) 37.5 mg PO [facility] Stop: 09/21/19 08:59 Last Admin: 08/22/19 08:00 Dose: 37.5 mg Documented by: Metoprolol Tartrate (Lopressor) 5 mg IV Q6 PRN PRN Reason: heart rates above 110 bpm Stop: 09/18/19 17:59 Multivitamins (Multivitamin Tab) 1 tab PO [facility] Stop: 09/15/19 08:59 Last Admin: 08/22/19 08:00 Dose: 1 tab Documented by: Ondansetron HCl (Zofran) 4 mg IV Q6H PRN PRN Reason: Nausea Stop: 09/14/19 17:32 Polyethylene Glycol (Miralax Powder Packet) 17 gm PO DAILY PRN PRN Reason: Constipation Stop: 09/14/19 17:32
--- NOTE | 2019-08-22 13:53 | Hospitalist Progress Note ---
Date of Service August 22, 2019 Assessment & Plan (1) Acute systolic CHF (congestive heart failure): Coronary artery disease Bilateral pleural effusion -main presenting symptoms of shortness of breath on exertion -echocardiogram on this admission compared to that of January 2018 changed from normal to severely reduced ejection fraction of 20 to 25% and newly detected wall motion abnormalities with hypokinetic/akinetic anterior, anterior lateral, anterior septal, and apical wall and associated wall thinning in these areas -as per cardiology evaluation echocardiogram findings suggest significant coronary artery disease without active ischemia; "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 Given the fact there is significant wall thinning on echocardiogram it does appear to be old" -cardiac catheterization is not recommended at this time given these cardiac c hanges appear old and because of poor renal function at baseline -currently medical management -continue aspirin and atorvastatin -is on metoprolol succinate 12.5 mg qhs -medical management with diuretic: had been on Lasix 60 IV BID. -CXR 1 view 08/17/19: Cardiomegaly with unchanged pulmonary edema. Stable pleural effusions with persistent bibasilar opacities -CXR 2 view 08/19/19 show " Pulmonary edema persists. Right pleural effusion has slightly increased. Left pleural effusion is similar to prior exam. There are persistent bibasilar opacities." transitioned from Lasix 60 mg IV BID to 40 mg IV TID with Metolazone -08/21/19 start transition to oral furosemide as 40 mg PO TID without metolazone -08/22/19 chest X ray: Interval improvement in bilateral pleural effusions and pulmonary edema. will continue Lasix as 60 mg BID as per cardiology for now (2) Demand ischemia: elevated troponins (on this admission) secondary to demand ischemia and c hronic kidney disease stage IV -patient denied recent chest pains -admission troponins were 0.236, 0.264, 0.323 -medical management as above -no current active chest pains Atrial Fibrillation with Rapid Ventricular response -patient on telemetry went intro atrial fibrillation at 08/19/19 in afternoon with rapid ventricular response; patient was started heparin IV with bolus and warfarin 5 mg daily, titrated up metoprolol -cardiology service also stopped heparin drip as of 08/20/19 and recommended against systemic anticoagulation due to fall risk concerns. patient received oral metoprolol x 3 doses -08/21/19: patient received metoprolol 12.5 mg in AM, add on 25 mg daily tablet -patient returned to sinus rhythm on 08/21/19 but at times flips in and out of atrial fibrillation -continue metoprolol succiate as 37.5 mg daily (3) CKD (chronic kidney disease), stage IV: acute kidney injury on chronic kidney disease stage IV -monitor renal function while on Lasix diuretic -generally stable creatinine around 2 during hospital stay, however creatinine rising to 2.38 as of 08/21/19 -Lasix changed from IV to oral and metolazone stopped on 08/21/19, creatinine rising to 2.59 as of 08/22/19 (4) Hypertension: -blood pressure controlled with beta jesús and diuretic (5) Hypothyroid: -Levothyroxine 75 mcg daily (6) Multiple myeloma: -in remission per outpatient record. patient will be awaiting a bed to [facility] for physical rehabilitation but no beds available as of this time on Saturday08/21/19 and will stay in hospital throughout weekend of note, patient's right eye os prosthesis (7) DVT prophylaxis: -SQ Heparin as per palliative care evaluation the code status is DNR/DNI nephew [phone] Subjective Patient breathing on room air. no chest pain. no palpitations. no abdomen pain. no nausea. no vomiting Review of Systems Review of Systems: All systems reviewed & are unremarkable except as noted in HPI & below Physical Exam Constitutional: comfortable Eyes: EOM intact bilaterally ENMT: external ear and nose normal, oropharynx normal Neck: normal visual inspection Respiratory: normal respiratory effort (lung congestion and audible fluid sounds) Auscultation: + crackles (of lung bases) Cardiovascular: Rate/Rhythm: regular rhythm Gastrointestinal (Abdomen): normal bowel sounds, soft, nontender, no hepatosplenomegaly Musculoskeletal: Head/Neck/Chest: normocephalic and head atraumatic Neurologic: PERRL, EOMI, accommodation nl, no face palsy, no dysarthria C N's II-XI intact bilaterally Psychiatric: A+Ox3, euthymic affect Results & Data Vital Signs (Past 12 Hours) Vital Signs Temp Pulse Pulse Resp BP Pulse Ox 08/22/19 11:50 36.4 C L 94 H 18 122/77 95 08/22/19 08:15 36.9 C 92 H 18 137/85 98 08/22/19 08:00 87 08/22/19 03:39 36.5 C 83 18 118/74 97
[2019-08-22] MEDS: ATORVASTATIN 10 MG TAB PO SCH (20:52)
[2019-08-22] MEDS: AMITRIPTYLINE HCL 50 MG TAB PO SCH (20:52)
[2019-08-23] MEDS: LEVOTHYROXINE SODIUM 75 MCG TABLET PO SCH (05:21)
[2019-08-23] MEDS: FUROSEMIDE 20 MG TAB PO SCH ×2 (08:53→17:01)
[2019-08-23] MEDS: ASPIRIN 81 MG ECTAB PO SCH (08:53)
[2019-08-23] MEDS: MULTIVITAMIN TAB PO SCH (08:54)
[2019-08-23] MEDS: METOPROLOL SUCC 25MG EXT REL TAB PO SCH (08:55)
--- NOTE | 2019-08-23 08:56 | Hospitalist Progress Note ---
Date of Service August 23, 2019 Assessment & Plan (1) Acute systolic CHF (congestive heart failure): Coronary artery disease Bilateral pleural effusion -main presenting symptoms of shortness of breath on exertion -echocardiogram on this admission compared to that of January 2018 changed from normal to severely reduced ejection fraction of 20 to 25% and newly detected wall motion abnormalities with hypokinetic/akinetic anterior, anterior lateral, anterior septal, and apical wall and associated wall thinning in these areas -as per cardiology evaluation echocardiogram findings suggest significant coronary artery disease without active ischemia; "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 Given the fact there is significant wall thinning on echocardiogram it does appear to be old" -cardiac catheterization is not recommended at this time given these cardiac c hanges appear old and because of poor renal function at baseline -currently medical management -continue aspirin and atorvastatin -is on metoprolol succinate 12.5 mg qhs -medical management with diuretic: had been on Lasix 60 IV BID. -CXR 1 view 08/17/19: Cardiomegaly with unchanged pulmonary edema. Stable pleural effusions with persistent bibasilar opacities -CXR 2 view 08/19/19 show " Pulmonary edema persists. Right pleural effusion has slightly increased. Left pleural effusion is similar to prior exam. There are persistent bibasilar opacities." transitioned from Lasix 60 mg IV BID to 40 mg IV TID with Metolazone -08/21/19 start transition to oral furosemide as 40 mg PO TID without metolazone -08/22/19 chest X ray: Interval improvement in bilateral pleural effusions and pulmonary edema. will continue Lasix as 60 mg BID as per cardiology for now; 08/23/19: remove hancock for trial of void (2) Demand ischemia: elevated troponins (on this admission) secondary to demand ischemia and chronic kidney disease stage IV -patient denied recent chest pains -admission troponins were 0.236, 0.264, 0.323 -medical management as above -no current active chest pains Atrial Fibrillation with Rapid Ventricular response -patient on telemetry went intro atrial fibrillation at 08/19/19 in afternoon with rapid ventricular response; patient was started heparin IV with bolus and warfarin 5 mg daily, titrated up metoprolol -cardiology service also stopped heparin drip as of 08/20/19 and recommended against systemic anticoagulation due to fall risk concerns. patient received oral metoprolol x 3 doses -08/21/19: patient received metoprolol 12.5 mg in AM, add on 25 mg daily tablet -patient returned to sinus rhythm on 08/21/19 but at times flips in and out of atrial fibrillation -continue metoprolol succiate as 37.5 mg daily -transferred of telemetry monitoring on on 08/22/19; appears to be in rate controlled atrial fibrillation as of 08/23/19 (3) CKD (chronic kidney disease), stage IV: acute kidney injury on chronic kidney disease stage IV -monitor renal function while on Lasix diuretic -generally stable creatinine around 2 during hospital stay, however creatinine rising to 2.38 as of 08/21/19 -Lasix changed from IV to oral and metolazone stopped on 08/21/19, creatinine rising to 2.59 as of 08/22/19, repeat renal function labs (4) Hypertension: -blood pressure controlled with beta jesús and diuretic (5) Hypothyroid: -Levothyroxine 75 mcg daily (6) Multiple myeloma: -in remission per outpatient record. patient will be awaiting a bed to [facility] for physical rehabilitation but no beds available as of this time on Saturday08/21/19 and will stay in hospital throughout weekend of note, patient's right eye prosthesis (7) DVT prophylaxis: -SQ Heparin as per palliative care evaluation the code status is DNR/DNI nephew [phone] Subjective On exam patient's heart rhythm sounds irregular. Patient's heart rates have been controlled. Breathing on room air. no acute distress. does not have pain or headache or lightheadedness. no palpitations. hancock to be removed today for trial of void Review of Systems Review of Systems: All systems reviewed & are unremarkable except as noted in HPI & below Physical Exam Constitutional: comfortable Eyes: PERRL, conjunctivae normal, anicteric sclerae EOM intact bilaterally ENMT: external ear and nose normal, oropharynx normal Neck: normal visual inspection Respiratory: normal respiratory effort and able to speak in complete sentences Cardiovascular: Rate/Rhythm: regular rate and + irregularly irregular Gastrointestinal (Abdomen): normal bowel sounds, soft, nontender, no hepatosplenomegaly Musculoskeletal: Head/Neck/Chest: normocephalic and head atraumatic Neurologic: PERRL, EOMI, accommodation nl, no face palsy, no dysarthria CN's II-XI intact bilaterally Psychiatric: A+Ox3, euthymic affect Results & Data Vital Signs (Past 12 Hours) Vital Signs Temp Pulse Pulse Resp BP Pulse Ox 08/23/19 07:10 36.5 C 88 16 120/73 94 08/22/19 23:07 37.2 C 97 H 18 131/77 96
[2019-08-23 09:43] LABS: BUN Creatinine Ratio 22.7 (10-20); Calcium 9.8 mg/dl (8.5-10.1); Creatinine Clr Calc Pharmacy 16.3 ml/min; Est GFR (Non-African American) 16.4; Potassium 3.7 mmol/L (3.5-5.1)
[2019-08-23] MEDS: AMITRIPTYLINE HCL 50 MG TAB PO SCH (21:38)
[2019-08-23] MEDS: ATORVASTATIN 10 MG TAB PO SCH (21:38)
[2019-08-24] MEDS: LEVOTHYROXINE SODIUM 75 MCG TABLET PO SCH (04:32)
[2019-08-24 07:05] LABS: Albumin Globulin Ratio 0.5 (0.9-2); BUN Creatinine Ratio 23.9 (10-20); Bilirubin,Total 0.4 mg/dl (0.2-1); Creatinine Clr Calc Pharmacy 15.6 ml/min; Est GFR (African American) 17.9; Est GFR (Non-African American) 15.4; Globulin 5.5 gm/dl (2.5-4.0); Total Protein 8.5 gm/dl (6.4-8.2)
[2019-08-24] MEDS: ASPIRIN 81 MG ECTAB PO SCH (08:54)
[2019-08-24] MEDS: MULTIVITAMIN TAB PO SCH (08:55)
[2019-08-24] MEDS: METOPROLOL SUCC 25MG EXT REL TAB PO SCH (08:55)
[2019-08-24] MEDS: FUROSEMIDE 20 MG TAB PO SCH (08:55)
[2019-08-24] MEDS ORDERED: POTASSIUM CHLORIDE 20 MEQ TABCR PO SCH (12:00)
--- NOTE | 2019-08-24 12:20 | Discharge Summary ---
Date of Service August 24, 2019 Admission HPI Per Admitting Provider This is an 88-year-old female with significant past medical history of HTN, HLD, hypothyroidism, CKD stage IV with baseline creatinine 1.8-2.0, multiple myeloma in surveillance since 2012, osteoporosis who presents to [facility] ED secondary to dyspnea on exertion and weakness x4 days. Nephew and niece are at bedside. Patient elicits for the past 4 days she is overall felt unwell. Complains of shortness of breath with minimal exertion, productive purulent cough, decreased appetite and overall weakness. She lives alone but is monitored frequently by her nephew. She ambulates with a walker at baseline. She feels ambulating has been much more difficult over the past few days due to her weakness and being significantly short of breath. She denies any fever, chills, sweats, lightheadedness, dizziness, syncope, fall, chest pain, palpitations, hemoptysis, orthopnea, PND, nausea, vomiting, abdominal pain, dysuria, increased urgency or frequency with urination, melena, hematochezia. S he is mostly constipated and last bowel movement was 2 days ago which is normal for her. Her appetite has been overall decreased and overall intake has been poor over the past few days. Niece at bedside felt maybe she was dehydrated. No other recent illness or sick contacts. She does not monitor her weights on a regular basis; however, he is feels she only fluctuates about 1 to 2 pounds and has otherwise been stable. No significant lower extremity edema and she does take Lasix 40 mg twice daily. She is been compliant with her medications. She denies any significant increase in salt intake. In ED patient remained hemodynamically stable, saturating well on room air. CBC revealed WBC 6.39, H&H 12.0 and 36.1, platelet 192. CMP revealed sodium 134, K3.7, BUN 39, creatinine 2.16, glucose 131, troponin elevated 0.236, proBNP elevated 24,598 TSH 3.73 CXR: IMPRESSION:1. Cardiomegaly with volume overload and congestive change. B/L pleural effusions. She received ASA 325 mg x 1 along with furosemide 40 mg IV x1. Admission Exam Per Admitting Provider Constitutional: WD/WN, elderly, female vitals as above, NAD, sitting up in bed, pleasant, conversing easily Head: Normocephalic, Atraumatic Eyes: PERRL on right, left eye prosthetic, conjunctivae normal, anicteric sclerae ENMT: external ear and nose normal, oropharynx with dry mucous membranes Neck: trachea midline, no thyromegaly normal visual inspection Respiratory: normal respiratory effort, lungs clear to auscultation with decreased absent breath sounds bibasilar, no wheeze, rales, rhonchi. Normal insp/exp effort, no accessory muscle use Cardiovascular: RRR, no murmur, no edema Vessels: no JVD or carotid bruit Chest: normal inspection of chest Abdomen: normal bowel sounds, soft, nontender, no hepatosplenomegaly Musculoskeletal: no cyanosis or clubbing, extremities motor strength 5/5 Skin: no rashes, warm and dry normal turgor Neurologic: PERRL, EOMI, accommodation nl, no face palsy, no dysarthria CN's II-XI intact bilaterally and moves all extremities Psychiatric: A+Ox3, euthymic affect Lymphatic: no cervical or axillary lymphadenopathy : deferred Principal Diagnosis Acute systolic CHF (congestive heart failure) elevated troponin secondary to demand ischemia chronic kidney disease stage IV new onset atrial fibrillation Discharge Exam CONSTITUTIONAL: WNWD, vitals as above, generally well-appearing EYES: normal conjunctivae, no scleral icterus ENT: mucous membranes moist RESPIRATORY: clear to auscultation bilaterally, no crackles, rales or wheezes, normal respiratory effort CARDIOVASCULAR: regular rate and rhythm, S1 and 2 heard without murmurs, gallops or rubs, no JVD, no peripheral edema GASTROINTESTINAL: soft, nontender, nondistended MUSCULOSKELETAL: moves all extremities symmetrically, no gross focal deficits. Head is NC/AT SKIN: warm and dry NEUROLOGIC: CN 2-12 grossly intact, normal cognition, normal speech, no gross focal deficits. PSYCHIATRIC: alert cooperative and oriented to person, place and time. Discharge Data Allergies Allergy/AdvReac Type Severity Reaction Status Date / Time No Known Allergies Allergy Unverified 08/15/19 14:09 Consultations 08/15/19 15:36 ED Decision to Admit Stat 08/15/19 17:33 Consult Cardiology Routine Consult Case Management - Discharge Planning Routine 08/17/19 08:00 Consult Palliative Care Routine Ordered Studies 08/16/19 10:49 US effusion-chest/mediastinum Routine Hospital Course (1) Acute systolic CHF (congestive heart failure): (2) Atrial fibrillation: (3) Coronary artery disease: (4) Demand ischemia: (5) CKD (chronic kidney disease), stage IV: (6) Physical deconditioning: (7) Multiple myeloma: Patient is an 88-year-old female who presented with acute systolic heart failure. She was admitted to the hospitalist service and placed on telemetry. Cardiology was consulted. Initial work-up included chest x-ray revealing suspected bibasilar edema and bilateral pleural effusions. She was given Lasix x 1 dose with good output and this was continued. An echocardiogram was performed on hospital day 2 revealing new severely reduced LV systolic function with an EF of 20 to 25%, severe hypokinesis to akinesis involving the entire anterior, anterior lateral, anterior septal and apical silvestre with normal wall motion of the inferior and inferolateral silvestre only. This was associated with wall thinning of the akinetic segments. Grade 2 diastolic dysfunction was seen in addition to severe TR and severe MR. Pulmonary hypertension was seen with a PA systolic pressure of 70 mmHg. As the patient has severe chronic kidney disease and given the wall thinning on echocardiogram it appears CAD was the culprit for her cardiomyopathy, and cardiology did not see a benefit for cardiac catheterization at this time. She remained hospitalized to maximize medical therapy. She initially had some bradycardia but this improved and she was able to tolerate Toprol-XL. Her severe renal impairment precluded the administration of an LEX inhibitor or ARB. Her baby aspirin and statin were continued. She was also found to be in atrial fibrillation with rapid ventricular response which was a new diagnosis for her. She had initially been seen to go into this rhythm on 08/19 and was initially started on heparin IV with bolus and warfarin 5 mg daily. Metoprolol was titrated up as tolerated. Cardiology recommended against anticoagulation long-term and this was stopped. Additionally, given her severe mitral regurgitation and severe left atrial enlargement it was not thought to be beneficial to attempt rhythm control at this time. During her hospitalization palliative care did meet with the patient and speak with herself and her POA/nephew, Jeff Lopez. Her CODE STATUS was changed to DO NOT RESUSCITATE and the patient and family decided on a correction facility for physical rehabilitation with consideration to pursue this on a long-term basis. At time of discharge she was hemodynamically stable and afebrile and tolerating p.o. She was mentating at baseline and was not requiring supplemental oxygen. She reported her breathing was at her baseline and she felt drastically improved since admission. She was discharged in stable condition to [facility] for continued rehab efforts. Prior to discharge she was sent home on Toprol-XL 50 mg daily. She also was found to have a potassium of 3 on day of discharge likely the result of her ongoing diuretics. A repeat BMP was recommended in 2 to 3 days time, to be followed by the physician at the SNF and copied to her primary care doctor, Dr. Bo. This is to also follow her renal function which is declined at baseline. She was sent home on a low-dose potassium supplement until this can be further reviewed and changed as needed. Her lipid panel was at goal and she was continued on her home Lipitor 10 mg nightly. Her baby aspirin was continued. Again, poor renal function precluded the use of LEX inhibitor or ARB going home. Follow-up with primary care and Cardiology was in place prior to discharge. Total Time Total Time Spent Total Time Spent (In Minutes): 60 Total Time Includes: Examination of the Patient, Discharge Planning, Medication Reconciliation and Communication With Other Providers Discharge Plan Discharge Items Patient Disposition: Transfer [facility] Reason For Visit: PLEURAL EFFUSION, CHF Discharge Diagnosis: Acute systolic CHF (congestive heart failure) elevated troponin secondary to demand ischemia chronic kidney disease stage IV new onset atrial fibrillation Condition on Discharge: Good Activity: As commented below Activity Comment: per receiving facility Non-emergency contact: Primary Care Provider Call non-emergency contact if: you have any medication questions, your symptoms worsen, your pain is not controlled, your pain is worsening, your pain is unusual for you, your pain is concerning for you and you have a fever Follow-up/Referrals: Oswaldo Bo DO [Primary Care Provider] - Diet: Low Sodium (2gm) Ambulatory Orders: Basic Metabolic Panel (Routine) Timeframe: 3 Days Location: Determined by Patient Ordered By: Patience Dickson Attending Provider Instructions: 08/27/2019 11:20 AM Provider Oswaldo Bo DO Department General Internal Medicine [facility] 09/07/2019 3:00 PM Provider Madelin Ward PA-C Department Cardiology, [facility] Pending Studies at Discharge: No Stand-Alone Forms: My [facility] Skilled Items Patient informed of condition?: Yes DNR: Yes Discharge Level of Care: Skilled Communicable Disease: No Discharge Prognosis: Stable Lines: None Urinary Catheter: No Medications and DC Order Prescriptions: New metoprolol succinate [Toprol XL] 50 mg tablet extended release 24 hr 50 mg PO DAILY Qty: 30 RF: 1 furosemide 20 mg Tablet 60 mg PO BID17 Qty: 60 RF: 1 potassium chloride 10 mEq tablet extended release 10 meq PO DAILY Qty: 30 RF: 0 Continued atorvastatin 10 mg tablet 10 mg PO HS RF: 0 aspirin 81 mg Tablet,Delayed Release (Dr/Ec) 81 mg PO QAM RF: 0 amitriptyline 50 mg tablet 50 mg PO HS RF: 0 multivitamin Tablet 1 tab PO QAM RF: 0 levothyroxine 75 mcg tablet 75 mcg PO DAILYBB RF: 0 Discontinued furosemide 40 mg tablet 40 mg PO BIDM RF: 0 atenolol 25 mg tablet 25 mg PO HS RF: 0 Discharge Orders: Discharge Order (Routine); Ordered 08/24/19 Ordered By: Patience Serna Admission Data Admit Date/Time: 08/15/19 16:21 Attending Provider: Patience Serna Admit Provider: Graeme Ngo Primary Care Provider: Oswaldo Bo Other Providers: Radu Bray ; Graeme Ngo ; Alex Howell ; Joy Bermudez Other Interventions: Discharge Summary Assessment (RN) Last Done: 08/24/19 10:44
== END 2019-08-24 13:46 | DRG 291 ==
LOC: ED 13:41 → 2S 16:21 → SUATTDRO 16:21 → 2S 16:56 → 3W 08-22 14:29